=== PATIENT | male | born 1980 | race Caucasian/White ===

== ENCOUNTER 2021-10-22 11:38 | Inpatient (IN) ==
[2021-10-22] MEDS ORDERED: ONDANSETRON INJ 2 MG/ML 2 ML VIAL IV STA (15:49)
[2021-10-22] MEDS ORDERED: MoRPHine SULFATE 4 MG/ML 1 ML CARP\\VIAL IV STA ×2 (15:49→19:07)
--- NOTE | 2021-10-22 15:51 | Emergency Department Note ---
Impression & Plan Acute pancreatitis ADMIT ED Provider Note HPI: The patient is a 41-year-old male who presents the emergency department the chief complaint of abdominal pain that has been worsening over the past 24 hours. Patient states he developed some pain in his mid abdomen yesterday evening and was having difficulty sleeping throughout the night. He states he has had multiple episodes of vomiting. He states his pain is in the mid/upper abdomen and radiates somewhat towards his back. He denies any chest pain or shortness of breath, denies any recent fevers or coughing. On arrival to the emergency department the patient is hemodynamically stable, he is saturating well on room air on my initial assessment and is otherwise in no acute distress. He denies any diarrhea. ROS: -GI: Abdominal pain, nausea and vomiting *10 point review systems was conducted and is otherwise negative unless stated above *Outpatient medications and allergy history reviewed PE: General: Alert, NAD HEENT: Normocephalic, atraumatic, trachea midline Eyes: Extraocular eye movement is intact, no scleral erythema Pulmonary: Clear to auscultation bilaterally, no wheezing Cardio: Regular rate and rhythm GI: Abdomen is soft, moderate tenderness to palpation in the upper abdomen bilat erally without guarding or rigidity : No suprapubic tenderness MSK: No evidence of trauma or malformation of the extremities, no edema Skin: No evidence of rash Neuro: Alert, no focal deficits Psychiatric: Cooperative conveyor monitor: - An order was placed for continuous cardiac monitoring - Patient was noted to be in sinus rhythm with rate of 95 EKG: Rate: 98 Rhythm: Normal sinus rhythm Intervals: Within normal limits ST changes: No ST elevation Time: 1608 Medical Decision Making: Patient presented to the emergency department with abdominal pain that been ongoing for about the past day. CT imaging here in the ED shows evidence of acute pancreatitis. No evidence of any fluid collection. Lab work shows evidence of a lipase elevated at 13,500. Patient was given 2 L of IV fluid here in the ED, was also given antiemetics and two doses of IV morphine for pain. On my reassessment he states his pain is improved but still present. Case was discussed with the on-call hospitalist for [facility], Dr. Ramirez, patient was admitted to the hospitalist service in stable condition for further management. * Diagnosis: Acute pancreatitis * Disposition: Admission Alen Bustamante DO Emergency Medicine Past Med/Surg History Social History Smoking Status: Former smoker Tobacco Type: Cigarettes Preferred Language: [place] Feels Safe at Home: Yes Allergies Allergies Allergy/AdvReac Type Severity Reaction Status Date / Time No Known Allergies Allergy Unverified 10/22/21 16:08 Home Meds Home Medications Medication Instructions Recorded Confirmed [place] 2 tab PO DAILY 10/22/21 10/22/21 [place] Belly Tonic 1 dose PO DAILY 10/22/21 10/22/21 acetaminophen 500 mg tablet 1,000 mg PO Q6H PRN 10/22/21 10/22/21 (Tylenol Extra Strength) metformin 500 mg tablet 0 mg PO BID 10/22/21 10/22/21 Results & Data (ED) Vital Signs Vital Signs - 24 hr 10/22/21 11:55 10/22/21 16:14 10/22/21 16:15 Temperature 37 C Temperature Source Oral Pulse Rate 84 Pulse Rate [Left] 93 H Pulse Rhythm [Left] Regular Pulse Strength [Left] Normal Respiratory Rate 18 18 Respiratory Effort / Characteristics Non-Labored Non-Labored Respiratory Depth Normal Normal Respiratory Pattern Regular Regular Blood Pressure 155/86 H Blood Pressure [Left Arm] 146/80 H Blood Pressure Mean 109 Blood Pressure Mean [Left Arm] 102 Blood Pressure Position [Left Arm] Lying Pulse Oximetry 96 98 98 Oxygen Delivery Method Room Air Room Air Room Air Sepsis Recent Fever Within 48 Hours No Sepsis New/Unexplained Change in Mental Status No Sepsis Action Taken by Nursing No Action Required 10/22/21 16:16 10/22/21 16:20 10/22/21 16:30 Temperature Temperature Source Pulse Rate 97 H 94 H 99 H Pulse Rate [Left] Pulse Rhythm [Left] Pulse Strength [Left] Respiratory Rate 22 20 24 Respiratory Effort / Characteristics Respiratory Depth Respiratory Pattern Blood Pressure 147/77 H Blood Pressure [Left Arm] Blood Pressure Mean 100 Blood Pressure Mean [Left Arm] Blood Pressure Position [Left Arm] Pulse Oximetry 93 94 94 Oxygen Delivery Method Sepsis Recent Fever Within 48 Hours Sepsis New/Unexplained Change in Mental Status Sepsis Action Taken by Nursing 10/22/21 16:40 10/22/21 16:50 10/22/21 17:00 Temperature Temperature Source Pulse Rate 99 H 103 H 103 H Pulse Rate [Left] Pulse Rhythm [Left] Pulse Strength [Left] Respiratory Rate 23 19 24 Respiratory Effort / Characteristics Respiratory Depth Respiratory Pattern Blood Pressure 155/81 H Blood Pressure [Left Arm] Blood Pressure Mean 105 Blood Pressure Mean [Left Arm] Blood Pressure Position [Left Arm] Pulse Oximetry 94 93 93 Oxygen Delivery Method Sepsis Recent Fever Within 48 Hours Sepsis New/Unexplained Change in Mental Status Sepsis Action Taken by Nursing 10/22/21 17:10 10/22/21 17:20 10/22/21 17:30 Temperature Temperature Source Pulse Rate 104 H 104 H 113 H Pulse Rate [Left] Pulse Rhythm [Left] Pulse Strength [Left] Respiratory Rate 26 H 24 25 H Respiratory Effort / Characteristics Respiratory Depth Respiratory Pattern Blood Pressure Blood Pressure [Left Arm] Blood Pressure Mean Blood Pressure Mean [Left Arm] Blood Pressure Position [Left Arm] Pulse Oximetry 94 94 94 Oxygen Delivery Method Sepsis Recent Fever Within 48 Hours Sepsis New/Unexplained Change in Mental Status Sepsis Action Taken by Nursing 10/22/21 17:40 10/22/21 17:50 Temperature Temperature Source Pulse Rate 108 H 108 H Pulse Rate [Left] Pulse Rhythm [Left] Pulse Strength [Left] Respiratory Rate 24 25 H Respiratory Effort / Characteristics Respiratory Depth Respiratory Pattern Blood Pressure Blood Pressure [Left Arm] Blood Pressure Mean Blood Pressure Mean [Left Arm] Blood Pressure Position [Left Arm] Pulse Oximetry 94 94 Oxygen Delivery Method Sepsis Recent Fever Within 48 Hours Sepsis New/Unexplained Change in Mental Status Sepsis Action Taken by Nursing Laboratory Data Result diagrams: 10/22/21 14:15 10/22/21 16:22 Lab Results 10/22/21 10/22/21 10/22/21 Range/Units 14:15 14:15 16:22 WBC 6.96 (4.8-10.8) K/uL RBC 5.34 (4.7-6.1) M/uL Hgb 17.3 (14.0-18.0) g/dL Hct 45.7 (42-52) % MCV 85.6 (80-100) fL MCH 32.4 (25-34) pg MCHC 37.9 H (32-36) g/dL Plt Count 231 (130-400) K/uL Immature Gran % (Auto) 0.0 % Neut % (Auto) 88.3 % Lymph % (Auto) 6.9 % [place] % (Auto) 4.7 % Eos % (Auto) 0.1 % Baso % (Auto) 0.0 % Neut # (Auto) 6.14 (1.4-6.5) K/uL Lymph # (Auto) 0.48 L (1.2-3.4) K/uL [place] # (Auto) 0.33 (0.11-0.59) K/uL Eos # (Auto) 0.01 (0-0.5) K/uL Baso # (Auto) 0.00 (0-0.2) K/uL Immature Gran # (Auto) 0.00 (0.00-0.02) K/uL Sodium Cancelled 134 L Potassium Cancelled 4.4 Chloride Cancelled 105 Carbon Dioxide Cancelled 18 L Anion Gap Cancelled 11.0 BUN Cancelled 11 Creatinine Cancelled 0.71 Est Cr Clr Drug Dosing Cancelled 212.7 Est GFR ( Amer) Cancelled 133.2 Est GFR (Non-Af Amer) Cancelled 114.9 BUN/Creatinine Ratio Cancelled 15.9 Glucose Cancelled 328 H* Calcium Cancelled 9.1 Total Bilirubin Cancelled 0.8 AST Cancelled 25 ALT Cancelled 28 Alkaline Phosphatase Cancelled 88 Troponin I < 0.015 (0-0.045) ng/ml Total Protein Cancelled 8.6 H Albumin Cancelled 3.9 Globulin Cancelled 4.7 H Albumin/Globulin Ratio Cancelled 0.8 L Lipase Cancelled 80429 H Beta-Hydroxybutyric Acd (0.2-2.81) mg/dl Urine Color Urine Appearance (Clear) Urine pH (4.5-7.5) Ur Specific [place] (1.000-1.030) Urine Protein (Negative) Urine Glucose (UA) (Negative) Urine Ketones (Negative) Urine Blood (Negative) Urine Nitrite (Negative) Urine Bilirubin (Negative) Urine Urobilinogen (Negative) Ur Leukocyte Esterase (Negative) Urine WBC (Auto) (0-5) /hpf Urine RBC (Auto) (0-4) /hpf U Hyaline Cast (Auto) (0-5) /lpf U Epithel Cells (Auto) (0-5) /lpf Urine Bacteria (Auto) (Negative) 10/22/21 Range/Units Unknown WBC (4.8-10.8) K/uL RBC (4.7-6.1) M/uL Hgb (14.0-18.0) g/dL Hct (42-52) % MCV (80-100) fL MCH (25-34) pg MCHC (32-36) g/dL Plt Count (130-400) K/uL Immature Gran % (Auto) % Neut % (Auto) % Lymph % (Auto) % [place] % (Auto) % Eos % (Auto) % Baso % (Auto) % Neut # (Auto) (1.4-6.5) K/uL Lymph # (Auto) (1.2-3.4) K/uL [place] # (Auto) (0.11-0.59) K/uL Eos # (Auto) (0-0.5) K/uL Baso # (Auto) (0-0.2) K/uL Immature Gran # (Auto) (0.00-0.02) K/uL Sodium Potassium Chloride Carbon Dioxide Anion Gap BUN Creatinine Est Cr Clr Drug Dosing Est GFR ( Amer) Est GFR (Non-Af Amer) BUN/Creatinine Ratio Glucose Calcium Total Bilirubin AST ALT Alkaline Phosphatase Troponin I (0-0.045) ng/ml Total Protein Albumin Globulin Albumin/Globulin Ratio Lipase Beta-Hydroxybutyric Acd (0.2-2.81) mg/dl Urine Color Yellow Urine Appearance Clear (Clear) Urine pH 5.0 (4.5-7.5) Ur Specific [place] > 1.045 H (1.000-1.030) Urine Protein 1+ H (Negative) Urine Glucose (UA) 3+ H (Negative) Urine Ketones 4+ H (Negative) Urine Blood Negative (Negative) Urine Nitrite Negative (Negative) Urine Bilirubin Negative (Negative) Urine Urobilinogen Negative (Negative) Ur Leukocyte Esterase Negative (Negative) Urine WBC (Auto) 0 (0-5) /hpf Urine RBC (Auto) 0-4 (0-4) /hpf U Hyaline Cast (Auto) 0 (0-5) /lpf U Epithel Cells (Auto) 0-5 (0-5) /lpf Urine Bacteria (Auto) Negative (Negative) Administered Medications Sodium Chloride (Nss) 500 mls @ 80 mls/hr IV .Q6H15M CHAO Stop: 11/21/21 15:59 Last Admin: 10/22/21 16:12 Dose: 80 mls/hr Documented by: [id number] Discontinued Medications Sodium Chloride (Nss 1000ml) 1,000 mls @ 999 mls/hr IV .Q1H1M ONE Stop: 10/22/21 18:23 Last Infusion: 10/22/21 18:36 Dose: 0 mls/hr Documented by: [id number] Admin: 10/22/21 17:27 Dose: 999 mls/hr Documented by: [id number] Ioversol (Optiray 320 125ml) 120 ml IV ONCE ONE Stop: 10/22/21 18:45 Last Admin: 10/22/21 18:45 Dose: 120 ml Documented by: [id number] Morphine Sulfate (Morphine Sulfate 4 Mg/Ml 1 Ml Carp\Vial) 4 mg IV NOW STA Stop: 10/22/21 15:50 Last Admin: 10/22/21 16:11 Dose: 4 mg Documented by: [id number] Ondansetron HCl (Ondansetron Inj 2 Mg/Ml 2 Ml Vial) 4 mg IV NOW STA Stop: 10/22/21 15:50 Last Admin: 10/22/21 16:12 Dose: 4 mg Documented by: [id number] Imaging Data Radiologist's Impression: Abdomen/Pelvis CT 10/22/21 15:49 CT SCAN OF THE ABDOMEN AND PELVIS WITH IV CONTRAST CLINICAL HISTORY: Nausea and vomiting. Mid abdominal pain. COMPARISON STUDY: No priors. TECHNIQUE: Following the IV administration of 120 cc of Optiray 320, CT scan of the abdomen and pelvis is performed from the lung bases to the proximal femora. Images are reviewed in the axial, sagittal, and coronal planes. IV contrast was administered without complication. A dose lowering technique was utilized adhering to the principles of ALARA. CT DOSE: 1943.48 mGy.cm FINDINGS: Lung bases: The heart is normal in size and without pericardial effusion. There is a tiny hiatal hernia. There are trace pleural effusions with dependent atelectasis. Liver: The contrast-enhanced liver is enlarged, measuring 28.8 cm in length. The liver demonstrates diffusely diminished attenuation consistent with severe hepatic steatosis. There is no intrahepatic biliary ductal dilatation. The hepatic veins and portal veins are patent. Gallbladder: Unremarkable. Spleen: The spleen is markedly enlarged measuring 17.2 cm in length. Pancreas: The pancreas is enlarged and edematous. There is extensive peripancreatic infiltration and fluid consistent with acute pancreatitis. The gland enhances throughout. The splenic vein is patent. No organized peripancreatic fluid collection is identified. The duct is normal in caliber. Adrenal glands: There is a 7 mm myelolipoma of the right adrenal gland. The adrenal glands are otherwise normal as imaged. Kidneys: The contrast enhanced kidneys are normal in size and without hydronephrosis. The kidneys enhance symmetrically. Abdominal vasculature: The abdominal aorta is normal in course and caliber. Bowel: There is no bowel obstruction. The appendix is well-visualized and normal. Peritoneum: There is no intraperitoneal free air or abdominal ascites. Lymphadenopathy: None. Pelvic viscera: The bladder, prostate, and seminal vesicles are normal as visualized. Skeletal structures: No lytic or blastic lesions are seen. IMPRESSION: 1. Findings are consistent with severe acute pancreatitis. 2. The gland enhances throughout and no organized peripancreatic fluid collection is identified. 3. Marked hepatomegaly and steatosis. 4. Splenomegaly. 5. Trace pleural effusions with dependent atelectasis. 6. Additional findings as above. ACT 112: Negative or not required by law. Electronically signed by: Arcadio Rudolph M.D. 10/22/2021 6:56 PM Discharge Plan Visit Data Chief Complaint: Abdominal Pain Stated Complaint: ABD AND BACK PAIN ED Provider: Alen Bustamante Discharge Problem: Acute pancreatitis Forms Stand Alone Forms: [facility] [employer] Prescriptions Prescriptions: No Action metformin 500 mg Tablet 0 mg PO BID RF: 0 acetaminophen [Tylenol Extra Strength] 500 mg Tablet 1,000 mg PO Q6H PRN (Reason: Pain) RF: 0 [place] 2 tab PO DAILY RF: 0 [place] Belly Tonic 1 dose PO DAILY RF: 0 Referrals Referrals: PCP,NO [Primary Care Provider] - Discharge Problem: Acute pancreatitis Qualifiers: Pancreatitis type: unspecified pancreatitis type Acute pancreatitis complication: no infection or necrosis Qualified Code(s): K85.90 - Acute pancreatitis without necrosis or infection, unspecified
[2021-10-22 16:12] LABS: Eosinophils # (auto) 0.01 K/uL (0-0.5); Eosinophils % (auto) 0.1 %; Hematocrit (blood only) 45.7 % (42-52); Hemoglobin 17.3 g/dL (14.0-18.0); Lymphocytes # (auto) 0.48 K/uL (1.2-3.4); Lymphocytes % (auto) 6.9 %; Mean Corpuscular Hemoglobin 32.4 pg (25-34); Mean Corpuscular Hgb Conc 37.9 g/dL (32-36); Mean Corpuscular Volume 85.6 fL (80-100); Monocytes # (auto) 0.33 K/uL (0.11-0.59); Monocytes % (auto) 4.7 %; Neutrophils # (auto) 6.14 K/uL (1.4-6.5); Neutrophils % (auto) 88.3 %; Platelet Count 231 K/uL (130-400); Red Blood Count 5.34 M/uL (4.7-6.1); White Blood Count 6.96 K/uL (4.8-10.8)
[2021-10-22] MEDS: SODIUM CHLORIDE 0.9% 500 ML IV SCH (16:12)
[2021-10-22 16:35] LABS: Appearance Urine Clear (Clear); Bacteria Urine Automated Negative (Negative); Bilirubin Urine Negative (Negative); Blood Urine Negative (Negative); Cast Urine Automated 0 /lpf (0-5); Color Urine Yellow; Epithelial Cell Urine Auto 0-5 /lpf (0-5); Glucose Urine UA 3+ (Negative); Ketones Urine 4+ (Negative); Leukocyte Esterase Urine Negative (Negative); Nitrite Urine Negative (Negative); Protein Urine 1+ (Negative); RBC Urine Automated 0-4 /hpf (0-4); Specific Gravity Urine > 1.045 (1.000-1.030); Urobilinogen Urine Negative (Negative); WBC Urine Automated 0 /hpf (0-5)
[2021-10-22 17:19] LABS: Aspartate Aminotransferase 25 U/L (15-37); Potassium 4.4 mmol/L (3.5-5.1)
[2021-10-22 17:21] LABS: Alanine Aminotransferase 28 U/L (12-78); Albumin Globulin Ratio 0.8 (0.9-2); Albumin Level 3.9 gm/dl (3.4-5.0); Alkaline Phosphatase 88 U/L (45-117); BUN Creatinine Ratio 15.9 (10-20); Bilirubin,Total 0.8 mg/dl (0.2-1); Blood Urea Nitrogen 11 mg/dl (7-18); Calcium 9.1 mg/dl (8.5-10.1); Carbon Dioxide 18 mmol/L (21-32); Chloride 105 mmol/L (98-107); Creatinine Clr Calc Pharmacy 212.7 ml/min; Est GFR (African American) 133.2 ml/min; Est GFR (Non-African American) 114.9 ml/min; Globulin 4.7 gm/dl (2.5-4.0); Glucose 328 mg/dl (70-99); Lipase 13513 U/L (73-393); Sodium 134 mmol/L (136-145); Total Protein 8.6 gm/dl (6.4-8.2); Troponin I < 0.015 ng/ml (0-0.045)
[2021-10-22] MEDS ORDERED: SODIUM CHLORIDE 0.9% 1000ML 1,000 ML IV ONE ×2 (17:23→19:07)
--- NOTE | 2021-10-22 17:59 | Electrocardiogram Report ---
Test Reason : Blood Pressure : / mmHG Vent. Rate : 098 BPM Atrial Rate : 098 BPM P-R Int : 138 ms QRS Dur : 092 ms QT Int : 350 ms P-R-T Axes : 041 072 057 degrees QTc Int : 446 ms Normal sinus rhythm Normal ECG No previous ECGs available Confirmed by Glenn Bingham ([id number]) on 10/22/2021 5:58:44 PM Referred By: Confirmed By:Colin Bingham
[2021-10-22] MEDS ORDERED: OPTIRAY 320 125ml IV ONE (18:44)
--- NOTE | 2021-10-22 18:58 | CT Scan Report ---
CT SCAN OF THE ABDOMEN AND PELVIS WITH IV CONTRAST CLINICAL HISTORY: Nausea and vomiting. Mid abdominal pain. COMPARISON STUDY: No priors. TECHNIQUE: Following the IV administration of 120 cc of Optiray 320, CT scan of the abdomen and pelv is is performed from the lung bases to the proximal femora. Images are reviewed in the axial, sagitta l, and coronal planes. IV contrast was administered without complication. A dose lowering technique w as utilized adhering to the principles of ALARA. CT DOSE: 1943.48 mGy.cm FINDINGS: Lung bases: The heart is normal in size and without pericardial effusion. There is a tiny hiatal daniel ia. There are trace pleural effusions with dependent atelectasis. Liver: The contrast-enhanced liver is enlarged, measuring 28.8 cm in length. The liver demonstrates d iffusely diminished attenuation consistent with severe hepatic steatosis. There is no intrahepatic bi liary ductal dilatation. The hepatic veins and portal veins are patent. Gallbladder: Unremarkable. Spleen: The spleen is markedly enlarged measuring 17.2 cm in length. Pancreas: The pancreas is enlarged and edematous. There is extensive peripancreatic infiltration and fluid consistent with acute pancreatitis. The gland enhances throughout. The splenic vein is patent. No organized peripancreatic fluid collection is identified. The duct is normal in caliber. Adrenal glands: There is a 7 mm myelolipoma of the right adrenal gland. The adrenal glands are otherw ise normal as imaged. Kidneys: The contrast enhanced kidneys are normal in size and without hydronephrosis. The kidneys enh ance symmetrically. Abdominal vasculature: The abdominal aorta is normal in course and caliber. Bowel: There is no bowel obstruction. The appendix is well-visualized and normal. Peritoneum: There is no intraperitoneal free air or abdominal ascites. Lymphadenopathy: None. Pelvic viscera: The bladder, prostate, and seminal vesicles are normal as visualized. Skeletal structures: No lytic or blastic lesions are seen. IMPRESSION: 1. Findings are consistent with severe acute pancreatitis. 2. The gland enhances throughout and no organized peripancreatic fluid collection is identified. 3. Marked hepatomegaly and steatosis. 4. Splenomegaly. 5. Trace pleural effusions with dependent atelectasis. 6. Additional findings as above. ACT 112: Negative or not required by law. Electronically signed by: Arcadio Rudolph M.D. 10/22/2021 6:56 PM
--- NOTE | 2021-10-22 21:03 | Ultrasound Report ---
ULTRASOUND RIGHT UPPER QUADRANT ABDOMEN CLINICAL HISTORY: Right upper quadrant abdominal pain. Pancreatitis. COMPARISON STUDY: Abdominal CT dated 10/22/2021. TECHNIQUE: Real-time, grayscale, and color flow sonography of the right upper quadrant of the abdomen was performed. Images are reviewed in the transverse and longitudinal planes. FINDINGS: Liver: The liver is markedly enlarged and demonstrates heterogeneously increased echotexture consiste nt with hepatic steatosis. There is no intrahepatic biliary ductal dilatation. The main portal vein i s patent. Gallbladder: Biliary sludge is noted. No shadowing gallstones are identified. There is no gallbladder wall thickening or pericholecystic fluid. A sonographic Juarez's sign is reportedly absent. The comm on bile duct measures up to 0.7 cm in diameter. Pancreas: Not well visualized due to overlying bowel gas. Right kidney: Survey images of the right kidney demonstrate normal size and echotexture. There is no hydronephrosis. Ascites: None. IMPRESSION: 1. There is biliary sludge with no shadowing gallstones identified. 2. Marked hepatomegaly and hepatic steatosis. 3. The pancreas was not visualized due to overlying bowel gas. ACT 112: Negative or not required by law. Electronically signed by: Arcadio Rudolph M.D. 10/22/2021 9:02 PM
[2021-10-22] MEDS ORDERED: NovoLIN-R INSULIN PER UNIT CHARGE IV STA (21:14)
[2021-10-22] MEDS ORDERED: INSULIN GLARGINE SOLOSTAR 100 UNITS/ML 3 ML PEN SC SCH (21:17)
--- NOTE | 2021-10-22 23:03 | History and Physical Report ---
DATE OF ADMISSION: 10/22/2021. CHIEF COMPLAINT: Abdominal pain. HISTORY OF PRESENT ILLNESS: A 41-year-old male with past medical history significant for diabetes, morbid obesity presents with severe abdominal pain. 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 He says since last night he is having severe abdominal pain all over his belly that radiates to back, severe pain with associated nausea and vomiting. He then came here and found to have acute pancreatitis. The patient denies any alcohol use. He states he drinks once in a while. Denies any diarrhea or constipation. Normal bladder movements. No chest pain. He states he is not able to take deep breath and makes him feel short of breath. Denies any headache. No blurred visions, no runny nose, some sore throat from vomiting. Otherwise, ambulates okay. Hemodynamically stable. ALLERGIES: No known drug allergies. PAST MEDICAL HISTORY: As mentioned above. PAST SURGICAL HISTORY: Right foot surgery after accident. MEDICATIONS: The patient is on metformin 500 mg tablets, Tylenol p.r.n. FAMILY HISTORY: Father had diabetes and cholecystectomy. SOCIAL HISTORY: He smokes 1-2 packs a week, he did not smoke in the last 2 weeks, he smoked on and off for the last 20 years. Alcohol, occasional. No drug use. REVIEW OF SYSTEMS: As per HPI. Rest of review of systems is negative. PHYSICAL EXAMINATION: GENERAL: The patient is morbidly obese, seems to be in abdominal pain. VITAL SIGNS: Temperature 37, pulse 98, respiratory rate 38, blood pressure 176/112, oxygen 94% on room air. HEENT: Pupils equal, round and reactive to light. Oral mucosa dry. NECK: No JVD or neck masses. CARDIOVASCULAR: S1 and S2 heard, regular rate and rhythm. No murmur, no gallop. RESPIRATORY: Normal AP diameter. No accessory muscle use. No wheezing, no crackles. ABDOMEN: Soft. Bowel sounds present. Diffuse tenderness, guarding present. No distention. CENTRAL NERVOUS SYSTEM: Cranial nerves II through XII are grossly intact, nonfocal. EXTREMITIES: No edema, no erythema. LABORATORY DATA: WBC 6.9, hemoglobin is 15.3, hematocrit 45.7, platelets 231. Sodium 134, potassium 4.4, chloride 105, bicarbonate 18, BUN 11, creatinine 0.7, serum glucose 328, calcium 9.1, total bilirubin 0.8, AST 24, ALT 28, alkaline phosphatase 88. Troponin I less than 0.015. Lipase 25206. Urinalysis +4 ketones, +3 glucose. SARS-CoV-2 negative. Gallbladder ultrasound biliary sludge with no gallstones identified, marked hepatomegaly with hepatic steatosis. Pancreas is not visualized. IMAGING DATA: CT of the abdomen and pelvis with IV contrast shows consistent with severe acute pancreatitis, marked hepatomegaly and steatosis, splenomegaly. EKG: Normal sinus rhythm at a rate 98, no previous EKGs available. ASSESSMENT AND PLAN: This is a 41-year-old male who presents with severe abdominal pain and found to have acute pancreatitis. 1. Acute severe pancreatitis, etiology unclear. The patient is not alcoholic. No gallstones on the ultrasound. We will check fasting lipid profiles in the a.m. We will treat this with aggressive fluids, n.p.o., IV antiemetics, IV pain medicines p.r.n. Consult GI in the a.m. for further recommendations. 2. Diabetes. Sugars are running high. The patient is on metformin. The patient says he is diabetic since one year ago. Bicarbonate was slightly on the lower side at 18, we will give IV insulin Lantus insulin sliding scale. Recheck the labs in the midnight and the bicarbonate drops further we will do DKA protocol. Getting aggressive fluids as above, we will follow the HbA1c levels in the a.m. 3. Morbid obesity. Needs counseling. 4. Deep venous thrombosis prophylaxis: Lovenox. DISPOSITION: Closely monitor in the medical floor. PT/OT prior to discharge. Social service to help with discharge planning. Job ID: [id number] [facility] SYSTEM[facility]raj
[2021-10-23] MEDS ORDERED: ONDANSETRON INJ 2 MG/ML 2 ML VIAL IV PRN (01:29)
[2021-10-23] MEDS: ENOXAPARIN INJ 40 MG/0.4 ML SYR SQ SCH ×3 (02:42→21:48)
[2021-10-23] MEDS: HYDROmorphone INJ 0.5 MG/0.5 ML SYR IV PRN ×2 (02:43→13:39)
[2021-10-23] MEDS: LACTATED RINGER'S 1,000 ML IV SCH ×5 (02:43→23:47)
[2021-10-23] MEDS: SODIUM CHLORIDE 0.9% 500 ML IV SCH (03:13)
[2021-10-23 04:06] LABS: BUN Creatinine Ratio 13.3 (10-20); Calcium 7.8 mg/dl (8.5-10.1); Creatinine Clr Calc Pharmacy 145.2 ml/min; Est GFR (African American) 101.4 ml/min; Est GFR (Non-African American) 87.5 ml/min
[2021-10-23 04:21] LABS: Beta-Hydroxybutyrate 3.68 mg/dl (0.2-2.81); Potassium 5.2 mmol/L (3.5-5.1)
[2021-10-23] MEDS ORDERED: INSULIN HUMAN REGULAR PER UNIT 7 UNITS in SYRINGE 0 ML IV STA (04:26)
[2021-10-23] MEDS ORDERED: NovoLIN-R INSULIN PER UNIT CHARGE IV STA (04:28)
[2021-10-23] MEDS ORDERED: INSULIN ASPART 100 UNITS/ML 3 ML PEN SC SCH ×2 (04:45→07:30)
[2021-10-23] MEDS ORDERED: INSULIN HUMAN REGULAR PER UNIT 7 UNITS in SYRINGE 6.93 ML IV ONE (04:45)
[2021-10-23 05:27] LABS: Eosinophils # (auto) 0.01 K/uL (0-0.5); Eosinophils % (auto) 0.3 %; Hematocrit (blood only) 46.5 % (42-52); Hemoglobin 16.4 g/dL (14.0-18.0); Immature Granulocytes # (auto) 0.01 K/uL (0.00-0.02); Immature Granulocytes % (auto) 0.3 %; Lymphocytes # (auto) 0.49 K/uL (1.2-3.4); Lymphocytes % (auto) 15.1 %; Mean Corpuscular Hemoglobin 30.2 pg (25-34); Mean Corpuscular Hgb Conc 35.3 g/dL (32-36); Mean Corpuscular Volume 85.6 fL (80-100); Mean Platelet Volume 10.7 fL (7.4-10.4); Monocytes # (auto) 0.11 K/uL (0.11-0.59); Monocytes % (auto) 3.4 %; Neutrophils # (auto) 2.63 K/uL (1.4-6.5); Neutrophils % (auto) 80.9 %; Platelet Count 173 K/uL (130-400); RDW Coefficient of Variation 14.1 % (11.5-14.5); Red Blood Count 5.43 M/uL (4.7-6.1); White Blood Count 3.25 K/uL (4.8-10.8)
[2021-10-23 05:58] LABS: BUN Creatinine Ratio 12.5 (10-20); Calcium 7.5 mg/dl (8.5-10.1); Creatinine Clr Calc Pharmacy 145.2 ml/min; Est GFR (African American) 101.4 ml/min; Est GFR (Non-African American) 87.5 ml/min; Magnesium 1.9 mg/dl (1.8-2.4); Potassium 4.7 mmol/L (3.5-5.1)
[2021-10-23 06:14] LABS: Beta-Hydroxybutyrate 2.35 mg/dl (0.2-2.81)
[2021-10-23 07:03] LABS: Estimated Average Glucose 194 mg/dl; Hemoglobin A1C 8.4 % (4.5-5.6)
[2021-10-23] MEDS ORDERED: PHARMACY GLYCEMIC MGMT CONSULT PRN ×2 (07:09→08:17)
[2021-10-23] MEDS ORDERED: STAT IV Infusion **Titration per Protocol STA (07:17)
[2021-10-23] MEDS ORDERED: INSULIN PROTOCOL GOAL RANGE ONE (07:17)
[2021-10-23] MEDS ORDERED: INSULIN REGULAR 250 UNITS in SODIUM CHLORIDE 0.9% 247.5 ML IV SCH (07:30)
[2021-10-23] MEDS ORDERED: NovoLIN-R BOLUS FROM BAG IV ONE (07:30)
[2021-10-23] MEDS ORDERED: FENOFIBRATE NANOCRYSTALLIZED 145 MG TABLET PO SCH (09:00)
[2021-10-23] MEDS ORDERED: INSULIN GLARGINE SOLOSTAR 100 UNITS/ML 3 ML PEN SC SCH (09:00)
[2021-10-23] MEDS: INSULIN ASPART 100 UNITS/ML 3 ML PEN SC SCH ×5 (09:02→21:06)
--- NOTE | 2021-10-23 09:10 | Gastrointestinal Consultation ---
Date of Consultation October 23, 2021 Assessment & Plan (1) Acute pancreatitis: 41 year old male with diabetes admitted w/ abdominal pain, nausea/vomiting onset Friday, lipase 13,513 w/ normal LFTS. Imaging consistent with acute pancreatitis and biliary sludge w/o biliary dilation. - NPO for bowel rest - OK for some ice chips - Continue LR 200 mL/hr - Antiemetics PRN - Analgesia PRN - Arrange MRCP - OP EUS in 4 weeks - Elevated triglycerides - severe inflammatory response to acute pancreatitis can cause increased triglycerides - rule out other cause of pancreatitis w/ MRCP - can continue fenofibrate at this time - If concern for hypertriglyceridemia induced pancreatitis, goal of triglyceride levels below 500 mg/dL - Plasmapheresis does not improve outcomes of uncomplicated HTGpanc, but if high risk features are evidence can consider cardiology evaluation in regards to plasmapheresis Thank you for allowing us to participate in the care of this patient. Please call with any acute changes, questions or concerns. Please see addendum below with additional recommendation from my supervising physician. Supervising Physician Co-Signing Physician Notes Late entry: Patient was zoran and examine don 10/23 with HEATHER Sinclair whose note reflects our findings and plan. History of Present Illness Reason for Consultation: pancreatitis Requesting Physician: Xander Attending Physician: Yaakov Terrell MD History of Present Illness 41 year old male with diabetes admitted w/ abdominal pain. Symptoms started abruptly on Friday. Upper abd pain w/ nausea/vomiting. Pain worsened, radiated to his back. Sought ED care. Lipase elevated, imaging consistent with acute severe pancreatitis. LFTS normal Denies new medications Denies heavy ETOH use, no ETOH use at all since summer 2020 Denies marijuana, other street drugs Glucose 377 Triglycerides 843 Lipase 13,513 --> 4,212 TB 0.8 AST 25 ALT 28 ALKP 88 ABD US 2020: There is biliary sludge with no shadowing gallstones identified.. Marked hepatomegaly and hepatic steatosis. The pancreas was not visualized due to overlying bowel CTAP 2020: Findings are consistent with severe acute pancreatitis. The gland enhances throughout and no organized peripancreatic fluid collection is identified.. Marked hepatomegaly and steatosis.. Splenomegaly.. Trace pleural effusions with dependent atelectasis. Allergies Allergy/AdvReac Type Severity Reaction Status Date / Time No Known Allergies Allergy Unverified 10/22/21 16:08 Home Medications Medication Instructions Recorded Confirmed Type [place] 2 tab PO DAILY 10/22/21 10/22/21 History [place] Flat Belly Tonic 1 dose PO DAILY 10/22/21 10/22/21 History acetaminophen 500 mg tablet 1,000 mg PO Q6H PRN 10/22/21 10/22/21 History (Tylenol Extra Strength) metformin 500 mg tablet 0 mg PO BID 10/22/21 10/22/21 History Patient History Social History Smoking Status: Former smoker Tobacco Type: Cigarettes Preferred Language: Liberian Communication Ability: Effective Beliefs That Will Affect Care: None Current Living Situation: Spouse Other Information That Helps Us Care for You: No Feels Safe at Home: Yes Assistive Devices: None Review of Systems Review of Systems: All systems reviewed & are unremarkable except as noted in HPI & below Physical Exam Constitutional: WD/WN, vitals as above Neck: trachea midline, no thyromegaly Respiratory: normal respiratory effort, lungs clear to auscultation Cardiovascular: Rate/Rhythm: + tachycardic Gastrointestinal (Abdomen): Inspection/Auscultation: abdomen normal to inspection and normal bowel sounds; abdomen not distended Percussion/Palpation: + abdomen tender and abdomen soft; no guarding and abdomen not rigid Skin: no rashes, warm and dry Results & Data ([facility]) Vital Signs (Past 12 Hours) Vital Signs Pulse Pulse Resp BP BP Pulse Ox 10/23/21 03:00 117 H 20 140/76 95 10/23/21 01:50 130 H 32 H 143/88 H 98 10/23/21 01:40 124 H 29 H 94 10/23/21 01:35 127 H 20 143/86 H 98 10/23/21 01:30 126 H 32 H 95 10/23/21 01:20 125 H 32 H 95 10/23/21 01:10 128 H 32 H 95 10/23/21 01:00 127 H 31 H 96 10/23/21 00:50 131 H 21 95 10/23/21 00:40 128 H 33 H 94 10/23/21 00:30 130 H 28 H 95 10/23/21 00:20 136 H 31 H 148/60 H 94 10/23/21 00:19 143 H 40 H 10/22/21 23:30 124 H 25 H 94 10/22/21 23:20 128 H 32 H 94 10/22/21 23:10 130 H 31 H 93 10/22/21 23:00 124 H 31 H 93 10/22/21 22:50 124 H 32 H 92 10/22/21 22:40 126 H 33 H 94 10/22/21 22:30 129 H 30 H 10/22/21 22:20 126 H 32 H 92 10/22/21 22:15 126 H 34 H 146/78 H 94 Laboratory Results 10/23/21 10/23/21 10/23/21 Range/Units 08:36 05:33 05:09 WBC (4.8-10.8) K/uL RBC (4.7-6.1) M/uL Hgb (14.0-18.0) g/dL Hct (42-52) % MCV (80-100) fL MCH (25-34) pg MCHC (32-36) g/dL RDW Std Deviation (36.4-46.3) fL RDW Coeff of Che (11.5-14.5) % Plt Count (130-400) K/uL MPV (7.4-10.4) fL Immature Gran % (Auto) % Neut % (Auto) % Lymph % (Auto) % [place] % (Auto) % Eos % (Auto) % Baso % (Auto) % Neut # (Auto) (1.4-6.5) K/uL Lymph # (Auto) (1.2-3.4) K/uL [place] # (Auto) (0.11-0.59) K/uL Eos # (Auto) (0-0.5) K/uL Baso # (Auto) (0-0.2) K/uL Immature Gran # (Auto) (0.00-0.02) K/uL Sodium Potassium Chloride Carbon Dioxide Anion Gap BUN Creatinine Est Cr Clr Drug Dosing Est GFR ( Amer) Est GFR (Non-Af Amer) BUN/Creatinine Ratio Glucose POC Glucose 334 H* 313 H* (70-99) mg/dl Estimat Average Glucose 194 mg/dl Hemoglobin A1c 8.4 H (4.5-5.6) % Calcium Magnesium (1.8-2.4) mg/dl Total Bilirubin AST ALT Alkaline Phosphatase Troponin I (0-0.045) ng/ml Total Protein Albumin Globulin Albumin/Globulin Ratio Triglycerides (0-150) mg/dl Cholesterol (0-200) mg/dl LDL Cholesterol, Calc mg/dl VLDL Cholesterol, Calc mg/dl HDL Cholesterol mg/dl Cholesterol/HDL Ratio Lipase Beta-Hydroxybutyric Acd (0.2-2.81) mg/dl Urine Color Urine Appearance (Clear) Urine pH (4.5-7.5) Ur Specific [place] (1.000-1.030) Urine Protein (Negative) Urine Glucose (UA) (Negative) Urine Ketones (Negative) Urine Blood (Negative) Urine Nitrite (Negative) Urine Bilirubin (Negative) Urine Urobilinogen (Negative) Ur Leukocyte Esterase (Negative) Urine WBC (Auto) (0-5) /hpf Urine RBC (Auto) (0-4) /hpf U Hyaline Cast (Auto) (0-5) /lpf U Epithel Cells (Auto) (0-5) /lpf Urine Bacteria (Auto) (Negative) SARS-CoV-2, RNA, NAAT (NEGATIVE) 10/23/21 10/23/21 10/23/21 Range/Units 05:09 05:09 03:14 WBC 3.25 L (4.8-10.8) K/uL RBC 5.43 (4.7-6.1) M/uL Hgb 16.4 (14.0-18.0) g/dL Hct 46.5 (42-52) % MCV 85.6 (80-100) fL MCH 30.2 (25-34) pg MCHC 35.3 (32-36) g/dL RDW Std Deviation 44.0 (36.4-46.3) fL RDW Coeff of Che 14.1 (11.5-14.5) % Plt Count 173 (130-400) K/uL MPV 10.7 H (7.4-10.4) fL Immature Gran % (Auto) 0.3 % Neut % (Auto) 80.9 % Lymph % (Auto) 15.1 % [place] % (Auto) 3.4 % Eos % (Auto) 0.3 % Baso % (Auto) 0.0 % Neut # (Auto) 2.63 (1.4-6.5) K/uL Lymph # (Auto) 0.49 L (1.2-3.4) K/uL [place] # (Auto) 0.11 (0.11-0.59) K/uL Eos # (Auto) 0.01 (0-0.5) K/uL Baso # (Auto) 0.00 (0-0.2) K/uL Immature Gran # (Auto) 0.01 (0.00-0.02) K/uL Sodium 133 L 132 L Potassium 4.7 5.2 H D Chloride 103 104 Carbon Dioxide 23 18 L Anion Gap 7.0 10.0 BUN 13 14 Creatinine 1.04 1.04 Est Cr Clr Drug Dosing 145.2 145.2 Est GFR ( Amer) 101.4 101.4 Est GFR (Non-Af Amer) 87.5 87.5 BUN/Creatinine Ratio 12.5 13.3 Glucose 377 H* 395 H* POC Glucose (70-99) mg/dl Estimat Average Glucose mg/dl Hemoglobin A1c (4.5-5.6) % Calcium 7.5 L 7.8 L Magnesium 1.9 (1.8-2.4) mg/dl Total Bilirubin AST ALT Alkaline Phosphatase Troponin I (0-0.045) ng/ml Total Protein Albumin Globulin Albumin/Globulin Ratio Triglycerides 843 H (0-150) mg/dl Cholesterol 224 H (0-200) mg/dl LDL Cholesterol, Calc mg/dl VLDL Cholesterol, Calc mg/dl HDL Cholesterol 30 mg/dl Cholesterol/HDL Ratio 8 Lipase 4212 H Beta-Hydroxybutyric Acd 2.35 3.68 H (0.2-2.81) mg/dl Urine Color Urine Appearance (Clear) Urine pH (4.5-7.5) Ur Specific [place] (1.000-1.030) Urine Protein (Negative) Urine Glucose (UA) (Negative) Urine Ketones (Negative) Urine Blood (Negative) Urine Nitrite (Negative) Urine Bilirubin (Negative) Urine Urobilinogen (Negative) Ur Leukocyte Esterase (Negative) Urine WBC (Auto) (0-5) /hpf Urine RBC (Auto) (0-4) /hpf U Hyaline Cast (Auto) (0-5) /lpf U Epithel Cells (Auto) (0-5) /lpf Urine Bacteria (Auto) (Negative) SARS-CoV-2, RNA, NAAT (NEGATIVE) 10/23/21 10/22/21 10/22/21 Range/Units 01:47 Unknown 23:13 WBC (4.8-10.8) K/uL RBC (4.7-6.1) M/uL Hgb (14.0-18.0) g/dL Hct (42-52) % MCV (80-100) fL MCH (25-34) pg MCHC (32-36) g/dL RDW Std Deviation (36.4-46.3) fL RDW Coeff of Che (11.5-14.5) % Plt Count (130-400) K/uL MPV (7.4-10.4) fL Immature Gran % (Auto) % Neut % (Auto) % Lymph % (Auto) % [place] % (Auto) % Eos % (Auto) % Baso % (Auto) % Neut # (Auto) (1.4-6.5) K/uL Lymph # (Auto) (1.2-3.4) K/uL [place] # (Auto) (0.11-0.59) K/uL Eos # (Auto) (0-0.5) K/uL Baso # (Auto) (0-0.2) K/uL Immature Gran # (Auto) (0.00-0.02) K/uL Sodium Cancelled Potassium Cancelled Chloride Cancelled Carbon Dioxide Cancelled Anion Gap Cancelled BUN Cancelled Creatinine Cancelled Est Cr Clr Drug Dosing Cancelled Est GFR ( Amer) Cancelled Est GFR (Non-Af Amer) Cancelled BUN/Creatinine Ratio Cancelled Glucose Cancelled POC Glucose 277 H (70-99) mg/dl Estimat Average Glucose mg/dl Hemoglobin A1c (4.5-5.6) % Calcium Cancelled Magnesium (1.8-2.4) mg/dl Total Bilirubin AST ALT Alkaline Phosphatase Troponin I (0-0.045) ng/ml Total Protein Albumin Globulin Albumin/Globulin Ratio Triglycerides (0-150) mg/dl Cholesterol (0-200) mg/dl LDL Cholesterol, Calc mg/dl VLDL Cholesterol, Calc mg/dl HDL Cholesterol mg/dl Cholesterol/HDL Ratio Lipase Beta-Hydroxybutyric Acd (0.2-2.81) mg/dl Urine Color Yellow Urine Appearance Clear (Clear) Urine pH 5.0 (4.5-7.5) Ur Specific [place] > 1.045 H (1.000-1.030) Urine Protein 1+ H (Negative) Urine Glucose (UA) 3+ H (Negative) Urine Ketones 4+ H (Negative) Urine Blood Negative (Negative) Urine Nitrite Negative (Negative) Urine Bilirubin Negative (Negative) Urine Urobilinogen Negative (Negative) Ur Leukocyte Esterase Negative (Negative) Urine WBC (Auto) 0 (0-5) /hpf Urine RBC (Auto) 0-4 (0-4) /hpf U Hyaline Cast (Auto) 0 (0-5) /lpf U Epithel Cells (Auto) 0-5 (0-5) /lpf Urine Bacteria (Auto) Negative (Negative) SARS-CoV-2, RNA, NAAT (NEGATIVE) 10/22/21 10/22/21 10/22/21 Range/Units 19:55 16:22 14:15 WBC (4.8-10.8) K/uL RBC (4.7-6.1) M/uL Hgb (14.0-18.0) g/dL Hct (42-52) % MCV (80-100) fL MCH (25-34) pg MCHC (32-36) g/dL RDW Std Deviation (36.4-46.3) fL RDW Coeff of Che (11.5-14.5) % Plt Count (130-400) K/uL MPV (7.4-10.4) fL Immature Gran % (Auto) % Neut % (Auto) % Lymph % (Auto) % [place] % (Auto) % Eos % (Auto) % Baso % (Auto) % Neut # (Auto) (1.4-6.5) K/uL Lymph # (Auto) (1.2-3.4) K/uL [place] # (Auto) (0.11-0.59) K/uL Eos # (Auto) (0-0.5) K/uL Baso # (Auto) (0-0.2) K/uL Immature Gran # (Auto) (0.00-0.02) K/uL Sodium 134 L Cancelled Potassium 4.4 Cancelled Chloride 105 Cancelled Carbon Dioxide 18 L Cancelled Anion Gap 11.0 Cancelled BUN 11 Cancelled Creatinine 0.71 Cancelled Est Cr Clr Drug Dosing 212.7 Cancelled Est GFR ( Amer) 133.2 Cancelled Est GFR (Non-Af Amer) 114.9 Cancelled BUN/Creatinine Ratio 15.9 Cancelled Glucose 328 H* Cancelled POC Glucose (70-99) mg/dl Estimat Average Glucose mg/dl Hemoglobin A1c (4.5-5.6) % Calcium 9.1 Cancelled Magnesium (1.8-2.4) mg/dl Total Bilirubin 0.8 Cancelled AST 25 Cancelled ALT 28 Cancelled Alkaline Phosphatase 88 Cancelled Troponin I < 0.015 (0-0.045) ng/ml Total Protein 8.6 H Cancelled Albumin 3.9 Cancelled Globulin 4.7 H Cancelled Albumin/Globulin Ratio 0.8 L Cancelled Triglycerides (0-150) mg/dl Cholesterol (0-200) mg/dl LDL Cholesterol, Calc mg/dl VLDL Cholesterol, Calc mg/dl HDL Cholesterol mg/dl Cholesterol/HDL Ratio Lipase 57844 H Cancelled Beta-Hydroxybutyric Acd (0.2-2.81) mg/dl Urine Color Urine Appearance (Clear) Urine pH (4.5-7.5) Ur Specific [place] (1.000-1.030) Urine Protein (Negative) Urine Glucose (UA) (Negative) Urine Ketones (Negative) Urine Blood (Negative) Urine Nitrite (Negative) Urine Bilirubin (Negative) Urine Urobilinogen (Negative) Ur Leukocyte Esterase (Negative) Urine WBC (Auto) (0-5) /hpf Urine RBC (Auto) (0-4) /hpf U Hyaline Cast (Auto) (0-5) /lpf U Epithel Cells (Auto) (0-5) /lpf Urine Bacteria (Auto) (Negative) SARS-CoV-2, RNA, NAAT NEGATIVE (NEGATIVE) 10/22/21 Range/Units 14:15 WBC 6.96 (4.8-10.8) K/uL RBC 5.34 (4.7-6.1) M/uL Hgb 17.3 (14.0-18.0) g/dL Hct 45.7 (42-52) % MCV 85.6 (80-100) fL MCH 32.4 (25-34) pg MCHC 37.9 H (32-36) g/dL RDW Std Deviation (36.4-46.3) fL RDW Coeff of Che (11.5-14.5) % Plt Count 231 (130-400) K/uL MPV (7.4-10.4) fL Immature Gran % (Auto) 0.0 % Neut % (Auto) 88.3 % Lymph % (Auto) 6.9 % [place] % (Auto) 4.7 % Eos % (Auto) 0.1 % Baso % (Auto) 0.0 % Neut # (Auto) 6.14 (1.4-6.5) K/uL Lymph # (Auto) 0.48 L (1.2-3.4) K/uL [place] # (Auto) 0.33 (0.11-0.59) K/uL Eos # (Auto) 0.01 (0-0.5) K/uL Baso # (Auto) 0.00 (0-0.2) K/uL Immature Gran # (Auto) 0.00 (0.00-0.02) K/uL Sodium Potassium Chloride Carbon Dioxide Anion Gap BUN Creatinine Est Cr Clr Drug Dosing Est GFR ( Amer) Est GFR (Non-Af Amer) BUN/Creatinine Ratio Glucose POC Glucose (70-99) mg/dl Estimat Average Glucose mg/dl Hemoglobin A1c (4.5-5.6) % Calcium Magnesium (1.8-2.4) mg/dl Total Bilirubin AST ALT Alkaline Phosphatase Troponin I (0-0.045) ng/ml Total Protein Albumin Globulin Albumin/Globulin Ratio Triglycerides (0-150) mg/dl Cholesterol (0-200) mg/dl LDL Cholesterol, Calc mg/dl VLDL Cholesterol, Calc mg/dl HDL Cholesterol mg/dl Cholesterol/HDL Ratio Lipase Beta-Hydroxybutyric Acd (0.2-2.81) mg/dl Urine Color Urine Appearance (Clear) Urine pH (4.5-7.5) Ur Specific [place] (1.000-1.030) Urine Protein (Negative) Urine Glucose (UA) (Negative) Urine Ketones (Negative) Urine Blood (Negative) Urine Nitrite (Negative) Urine Bilirubin (Negative) Urine Urobilinogen (Negative) Ur Leukocyte Esterase (Negative) Urine WBC (Auto) (0-5) /hpf Urine RBC (Auto) (0-4) /hpf U Hyaline Cast (Auto) (0-5) /lpf U Epithel Cells (Auto) (0-5) /lpf Urine Bacteria (Auto) (Negative) SARS-CoV-2, RNA, NAAT (NEGATIVE) (1) Acute pancreatitis Acute pancreatitis complication: no infection or necrosis Pancreatitis type: unspecified pancreatitis type Qualified Code(s): K85.90 - Acute pancreatitis without necrosis or infection, unspecified
[2021-10-23 10:01] LABS: BUN Creatinine Ratio 12.3 (10-20); Calcium 7.2 mg/dl (8.5-10.1); Creatinine Clr Calc Pharmacy 132.5 ml/min; Est GFR (African American) 90.8 ml/min; Est GFR (Non-African American) 78.3 ml/min
--- NOTE | 2021-10-23 13:14 | XRay Report ---
ORBIT RADIOGRAPHS 3 VIEWS HISTORY: pre-MRI screening. COMPARISON: None. FINDINGS: There are no radiopaque foreign bodies identified within the orbits. IMPRESSION: No radiopaque foreign bodies identified within the orbits. ACT 112: Negative or not required by law. Electronically signed by: Santo Bah M.D. 10/23/2021 1:13 PM
--- NOTE | 2021-10-23 14:11 | Pharmacy Report ---
Pharmacy Glycemic Short Note 2 - Date of Service October 23, 2021 - Glycemic Short BSG Results (Last 24 hours): 10/22/21 10/22/21 10/22/21 14:15 16:22 23:13 Glucose Cancelled 328 H* POC Glucose 277 H 10/23/21 10/23/21 10/23/21 01:47 03:14 05:09 Glucose Cancelled 395 H* 377 H* POC Glucose 10/23/21 10/23/21 10/23/21 05:33 08:36 09:22 Glucose 315 H* POC Glucose 313 H* 334 H* 10/23/21 10/23/21 10/23/21 09:48 11:03 12:09 Glucose POC Glucose 280 H 267 H 212 H 10/23/21 13:29 Glucose POC Glucose 210 H OUTPATIENT ANTIDIABETIC REGIMEN: * Lantus 43 units Q AM + 26 units Q PM * Novolog 10 units w/ breakfast + 18 units w/ lunch + 18 units w/ dinner * A1c = 7.5% 10/18/21 ASSESSMENT: * Type 2 diabetic admitted for COVID19 viral pna, resp failure, ARDS. * Patient is now intubated, sedated, paralyzed, receiving dexamethasone 6mg IV BID, and has orders to begin continuous tube feeds * Patient became hyperglycemia yesterdays due to multiple stressors and did receive IV insulin drip for a short period of time. I would not doubt that she may require the drip again in the near future given current stressors and along w/ the initiation of continuous tube feeds with high dose steroid. * Will begin a basal/bolus regimen. NPH will be utilized to address steroid induced hyperglycemia following each dose of dexamethasone. Will utilize a relatively low dose of Lantus on top of this due to out-pt insulin requirements of >100units/day when no receiving steroid therapy. Novolog CF/CR will be based upon outpt regimen and "severe" stress level. PLAN FOR INPATIENT GLYCEMIC CONTROL: * Basal insulin * Lantus 15 units SQ QAM * NPH 25 units SQ with each dose of dexamethasone 6mg IV * Bolus insulin * NovoLog per scale Q 4 hrs * Goal Range: Low 110 mg/dL - High 140 mg/dL * Correction Factor: 9 mg/dL/unit * Nutritional / Prandial insulin per carb ratio of 1 unit per 3 grams CHO consumed PLAN FOR DISCHARGE: * to be determined
[2021-10-23] MEDS ORDERED: D5W AND LACTATED RINGERS 1,000 ML IV SCH (14:45)
[2021-10-23 17:34] LABS: Albumin Globulin Ratio 0.5 (0.9-2); Albumin Level 2.8 gm/dl (3.4-5.0); BUN Creatinine Ratio 13.7 (10-20); Bilirubin,Total 0.6 mg/dl (0.2-1); Calcium 7.6 mg/dl (8.5-10.1); Creatinine Clr Calc Pharmacy 141.1 ml/min; Est GFR (Non-African American) 84.6 ml/min; Globulin 5.4 gm/dl (2.5-4.0); Potassium 3.8 mmol/L (3.5-5.1); Total Protein 8.2 gm/dl (6.4-8.2)
[2021-10-23] MEDS ORDERED: CARBOHYDRATES FOR HYPOGLYCEMIA PO PRN (17:49)
[2021-10-23] MEDS ORDERED: GLUCAGON FOR INJ 1 MG VIAL SQ PRN (17:49)
[2021-10-23] MEDS ORDERED: GLUCOSE 40% GEL 15 GM TUBE PO PRN (17:49)
[2021-10-23] MEDS ORDERED: DEXTROSE 50% 50 ML SYRINGE IV PRN (17:49)
[2021-10-23] MEDS ORDERED: GLUCOSE 10 TABS/TUBE PO PRN (17:49)
--- NOTE | 2021-10-23 23:04 | Hospitalist Progress Note ---
Date of Service October 23, 2021 delayed entry date of service noted above Assessment & Plan (1) Acute pancreatitis: Plan: ASSESSMENT AND PLAN: This is a 41-year-old male who presents with severe abdominal pain and found to have acute pancreatitis. 1. Acute severe pancreatitis,secondary to Hypertriglyceridemia -- given IV Insulin to lower TG Tg improved from 800s to 563 IV insulin discontinued -- continue vigorous IV LR MRCP pending -- NPO GI consulted 2. Diabetes mellitus 2 -- usually on Metformin -- given IV insulin BSG improved to < 200 -- transitioned to ISS -- monitor 3. Morbid obesity. Needs counseling. 4. Deep venous thrombosis prophylaxis: Lovenox. DISPOSITION: pending plan of care discussed with patient in detail and at length all questions answered he is understanding, agreeable, comfortable with the plan of care Admission and Anticipated Discharge Date Admission Date: October 22, 2021 Subjective ff up for acute pancreatitis,etc seen resting in bed, not in distress states abdominal pain is about the same worse with movement no chest pain, dyspnea, palpitations, dizziness no fever/chills no other symptoms Review of Systems Review of Systems: all noted and negative except for above Physical Exam Physical Exam: General- oriented x 3, not in distress, speaks in sentences with no effort or accessory muscle use Head- atraumatic Eyes- PERRL, EOMI, anicteric ENT- oropharynx clear Neck- supple, no JVD, no adenopathy, no thyromegaly; carotids +2/2, no bruits appreciated Lungs- clear to auscultation bilaterally, no rales/wheezes Heart- normal rate, regular rhythm; no murmur, no gallop, no rub appreciated Abdomen- normal bowel sounds, nondistended, soft, nontender, (+) mild tenderness upper quadrants Extremities- no pretibial edema, no calf tenderness; peripheral pulses intact Neuro- alert, oriented x 3; CN 2-12 grossly intact; motor 5/5 bilaterally;sensation 100% on all extremities; no other gross focal neurologic deficits Skin- warm & dry Results & Data Results & Data ([facility]) Vital Signs (Past 12 Hours) Vital Signs Temp Pulse Resp BP Pulse Ox 10/23/21 21:55 37.7 C H 115 H 18 112/65 91 10/23/21 16:26 37.4 C 122 H 18 117/79 94 10/23/21 15:27 111 H 20 130/77 98 10/23/21 11:32 129 H 18 120/73 99 all noted and reviewed including below (1) Acute pancreatitis Acute pancreatitis complication: no infection or necrosis Pancreatitis type: unspecified pancreatitis type Qualified Code(s): K85.90 - Acute pancreatitis without necrosis or infection, unspecified
[2021-10-24] MEDS: LACTATED RINGER'S 1,000 ML IV SCH ×4 (05:23→20:04)
[2021-10-24 08:01] LABS: Albumin Globulin Ratio 0.6 (0.9-2); Albumin Level 2.4 gm/dl (3.4-5.0); BUN Creatinine Ratio 19.4 (10-20); Bilirubin,Total 0.7 mg/dl (0.2-1); Calcium 7.9 mg/dl (8.5-10.1); Creatinine Clr Calc Pharmacy 196.1 ml/min; Est GFR (African American) 128.8 ml/min; Est GFR (Non-African American) 111.1 ml/min; Globulin 4.2 gm/dl (2.5-4.0); Potassium 3.7 mmol/L (3.5-5.1); Total Protein 6.6 gm/dl (6.4-8.2)
[2021-10-24] MEDS: ENOXAPARIN INJ 40 MG/0.4 ML SYR SQ SCH ×2 (09:29→20:08)
[2021-10-24] MEDS: INSULIN ASPART 100 UNITS/ML 3 ML PEN SC SCH ×4 (09:30→17:20)
--- NOTE | 2021-10-24 09:30 | Gastroenterology Progress Note ---
Date of Service October 24, 2021 Assessment & Plan (1) Acute pancreatitis: Plan: 41 year old male with diabetes admitted w/ abdominal pain, nausea/vomiting onset Friday, lipase 13,513 w/ normal LFTS. Imaging consistent with acute pancreatitis and biliary sludge w/o biliary dilation. - Await MRCP results - NPO for bowel rest - OK for some ice chips - Continue LR 200 mL/hr - Antiemetics PRN - OP EUS in 4 weeks - Elevated triglycerides - severe inflammatory response to acute pancreatitis can cause increased triglycerides - rule out other cause of pancreatitis w/ MRCP - can continue fenofibrate at this time - If concern for hypertriglyceridemia induced pancreatitis, goal of triglyceride levels below 500 mg/dL - Plasmapheresis does not improve outcomes of uncomplicated HTGpanc, but if high risk features are evidence can consider cardiology evaluation in regards to plasmapheresis Thank you for allowing us to participate in the care of this patient. Please call with any acute changes, questions or concerns. Please see addendum below with additional recommendation from my supervising physician. Admission and Anticipated Discharge Date Admission Date: October 22, 2021 Supervising Physician Co-Signing Physician Notes I have seen and examined the patient with HEATHER Sinclair whose note reflects our findings and plan. Pancreatitis. ?related to biliary sludge. aWaiting MRCP. TG are elevated and may be conntributing. Bowel rest. IVF hydration. Outpatient EUS in 4-6 weeks to further evaluate the pancreas. Subjective Pt was seen and evaluated. Pain was somewhat better last evening but returned this AM No nausea, vomiting MRCP pending Review of Systems Review of Systems: All systems reviewed & are unremarkable except as noted in HPI & below Physical Exam Constitutional: WD/WN, vitals as above Neck: trachea midline, no thyromegaly Respiratory: normal respiratory effort, lungs clear to auscultation Cardiovascular: Rate/Rhythm: regular rate Gastrointestinal (Abdomen): normal bowel sounds, soft, nontender, no hepatosplenomegaly Skin: no rashes, warm and dry Results & Data ([facility]) Vital Signs (Past 12 Hours) Vital Signs Temp Pulse Resp BP Pulse Ox 10/24/21 06:11 37.2 C 101 H 18 116/56 L 93 10/23/21 21:55 37.7 C H 115 H 18 112/65 91 Laboratory Results 10/24/21 10/24/21 10/24/21 Range/Units 08:09 05:54 05:54 Sodium 135 L (136-145) mmol/L Potassium 3.7 (3.5-5.1) mmol/L Chloride 105 (98-107) mmol/L Carbon Dioxide 25 (21-32) mmol/L Anion Gap 5.0 (3-11) BUN 15 (7-18) mg/dl Creatinine 0.77 D (0.6-1.4) mg/dl Est Cr Clr Drug Dosing 196.1 ml/min Est GFR ( Amer) 128.8 ml/min Est GFR (Non-Af Amer) 111.1 ml/min BUN/Creatinine Ratio 19.4 (10-20) Glucose 233 H (70-99) mg/dl POC Glucose 235 H (70-99) mg/dl Lactate (0.4-2.0) mmol/L Calcium 7.9 L (8.5-10.1) mg/dl Ionized Calcium 1.00 L (1.12-1.32) mmol/L Total Bilirubin 0.7 (0.2-1) mg/dl AST 9 L (15-37) U/L ALT 13 (12-78) U/L Alkaline Phosphatase 55 (45-117) U/L Total Protein 6.6 (6.4-8.2) gm/dl Albumin 2.4 L (3.4-5.0) gm/dl Globulin 4.2 H (2.5-4.0) gm/dl Albumin/Globulin Ratio 0.6 L (0.9-2) Triglycerides 497 H (0-150) mg/dl Lipase 1174 H (73-393) U/L Beta-Hydroxybutyric Acd (0.2-2.81) mg/dl 10/24/21 10/23/21 10/23/21 Range/Units 03:42 23:52 22:33 Sodium (136-145) mmol/L Potassium (3.5-5.1) mmol/L Chloride (98-107) mmol/L Carbon Dioxide (21-32) mmol/L Anion Gap (3-11) BUN (7-18) mg/dl Creatinine (0.6-1.4) mg/dl Est Cr Clr Drug Dosing ml/min Est GFR ( Amer) ml/min Est GFR (Non-Af Amer) ml/min BUN/Creatinine Ratio (10-20) Glucose (70-99) mg/dl POC Glucose 215 H 231 H 224 H (70-99) mg/dl Lactate (0.4-2.0) mmol/L Calcium (8.5-10.1) mg/dl Ionized Calcium (1.12-1.32) mmol/L Total Bilirubin (0.2-1) mg/dl AST (15-37) U/L ALT (12-78) U/L Alkaline Phosphatase (45-117) U/L Total Protein (6.4-8.2) gm/dl Albumin (3.4-5.0) gm/dl Globulin (2.5-4.0) gm/dl Albumin/Globulin Ratio (0.9-2) Triglycerides (0-150) mg/dl Lipase (73-393) U/L Beta-Hydroxybutyric Acd (0.2-2.81) mg/dl 10/23/21 10/23/21 10/23/21 Range/Units 21:52 20:46 20:06 Sodium (136-145) mmol/L Potassium (3.5-5.1) mmol/L Chloride (98-107) mmol/L Carbon Dioxide (21-32) mmol/L Anion Gap (3-11) BUN (7-18) mg/dl Creatinine (0.6-1.4) mg/dl Est Cr Clr Drug Dosing ml/min Est GFR ( Amer) ml/min Est GFR (Non-Af Amer) ml/min BUN/Creatinine Ratio (10-20) Glucose (70-99) mg/dl POC Glucose 225 H 234 H (70-99) mg/dl Lactate 2.0 (0.4-2.0) mmol/L Calcium (8.5-10.1) mg/dl Ionized Calcium (1.12-1.32) mmol/L Total Bilirubin (0.2-1) mg/dl AST (15-37) U/L ALT (12-78) U/L Alkaline Phosphatase (45-117) U/L Total Protein (6.4-8.2) gm/dl Albumin (3.4-5.0) gm/dl Globulin (2.5-4.0) gm/dl Albumin/Globulin Ratio (0.9-2) Triglycerides (0-150) mg/dl Lipase (73-393) U/L Beta-Hydroxybutyric Acd (0.2-2.81) mg/dl 10/23/21 10/23/21 10/23/21 Range/Units 19:31 18:28 17:18 Sodium (136-145) mmol/L Potassium (3.5-5.1) mmol/L Chloride (98-107) mmol/L Carbon Dioxide (21-32) mmol/L Anion Gap (3-11) BUN (7-18) mg/dl Creatinine (0.6-1.4) mg/dl Est Cr Clr Drug Dosing ml/min Est GFR ( Amer) ml/min Est GFR (Non-Af Amer) ml/min BUN/Creatinine Ratio (10-20) Glucose (70-99) mg/dl POC Glucose 218 H 190 H 172 H (70-99) mg/dl Lactate (0.4-2.0) mmol/L Calcium (8.5-10.1) mg/dl Ionized Calcium (1.12-1.32) mmol/L Total Bilirubin (0.2-1) mg/dl AST (15-37) U/L ALT (12-78) U/L Alkaline Phosphatase (45-117) U/L Total Protein (6.4-8.2) gm/dl Albumin (3.4-5.0) gm/dl Globulin (2.5-4.0) gm/dl Albumin/Globulin Ratio (0.9-2) Triglycerides (0-150) mg/dl Lipase (73-393) U/L Beta-Hydroxybutyric Acd (0.2-2.81) mg/dl 10/23/21 10/23/21 10/23/21 Range/Units 17:03 17:03 16:03 Sodium 138 (136-145) mmol/L Potassium 3.8 D (3.5-5.1) mmol/L Chloride 107 (98-107) mmol/L Carbon Dioxide 22 (21-32) mmol/L Anion Gap 9.0 (3-11) BUN 15 (7-18) mg/dl Creatinine 1.07 (0.6-1.4) mg/dl Est Cr Clr Drug Dosing 141.1 ml/min Est GFR ( Amer) 98.0 ml/min Est GFR (Non-Af Amer) 84.6 ml/min BUN/Creatinine Ratio 13.7 (10-20) Glucose 184 H (70-99) mg/dl POC Glucose 171 H (70-99) mg/dl Lactate (0.4-2.0) mmol/L Calcium 7.6 L (8.5-10.1) mg/dl Ionized Calcium 0.94 L (1.12-1.32) mmol/L Total Bilirubin 0.6 (0.2-1) mg/dl AST 10 L (15-37) U/L ALT 17 (12-78) U/L Alkaline Phosphatase 59 (45-117) U/L Total Protein 8.2 (6.4-8.2) gm/dl Albumin 2.8 L (3.4-5.0) gm/dl Globulin 5.4 H (2.5-4.0) gm/dl Albumin/Globulin Ratio 0.5 L (0.9-2) Triglycerides 563 H (0-150) mg/dl Lipase (73-393) U/L Beta-Hydroxybutyric Acd (0.2-2.81) mg/dl 10/23/21 10/23/21 10/23/21 Range/Units 15:14 14:14 13:29 Sodium (136-145) mmol/L Potassium (3.5-5.1) mmol/L Chloride (98-107) mmol/L Carbon Dioxide (21-32) mmol/L Anion Gap (3-11) BUN (7-18) mg/dl Creatinine (0.6-1.4) mg/dl Est Cr Clr Drug Dosing ml/min Est GFR ( Amer) ml/min Est GFR (Non-Af Amer) ml/min BUN/Creatinine Ratio (10-20) Glucose (70-99) mg/dl POC Glucose 193 H 193 H 210 H (70-99) mg/dl Lactate (0.4-2.0) mmol/L Calcium (8.5-10.1) mg/dl Ionized Calcium (1.12-1.32) mmol/L Total Bilirubin (0.2-1) mg/dl AST (15-37) U/L ALT (12-78) U/L Alkaline Phosphatase (45-117) U/L Total Protein (6.4-8.2) gm/dl Albumin (3.4-5.0) gm/dl Globulin (2.5-4.0) gm/dl Albumin/Globulin Ratio (0.9-2) Triglycerides (0-150) mg/dl Lipase (73-393) U/L Beta-Hydroxybutyric Acd (0.2-2.81) mg/dl 10/23/21 10/23/21 10/23/21 Range/Units 12:09 11:03 09:48 Sodium (136-145) mmol/L Potassium (3.5-5.1) mmol/L Chloride (98-107) mmol/L Carbon Dioxide (21-32) mmol/L Anion Gap (3-11) BUN (7-18) mg/dl Creatinine (0.6-1.4) mg/dl Est Cr Clr Drug Dosing ml/min Est GFR ( Amer) ml/min Est GFR (Non-Af Amer) ml/min BUN/Creatinine Ratio (10-20) Glucose (70-99) mg/dl POC Glucose 212 H 267 H 280 H (70-99) mg/dl Lactate (0.4-2.0) mmol/L Calcium (8.5-10.1) mg/dl Ionized Calcium (1.12-1.32) mmol/L Total Bilirubin (0.2-1) mg/dl AST (15-37) U/L ALT (12-78) U/L Alkaline Phosphatase (45-117) U/L Total Protein (6.4-8.2) gm/dl Albumin (3.4-5.0) gm/dl Globulin (2.5-4.0) gm/dl Albumin/Globulin Ratio (0.9-2) Triglycerides (0-150) mg/dl Lipase (73-393) U/L Beta-Hydroxybutyric Acd (0.2-2.81) mg/dl 10/23/21 10/23/21 10/23/21 Range/Units 09:22 09:22 09:22 Sodium 135 L (136-145) mmol/L Potassium (3.5-5.1) mmol/L Chloride 104 (98-107) mmol/L Carbon Dioxide 20 L (21-32) mmol/L Anion Gap 11.0 (3-11) BUN 14 (7-18) mg/dl Creatinine 1.14 (0.6-1.4) mg/dl Est Cr Clr Drug Dosing 132.5 ml/min Est GFR ( Amer) 90.8 ml/min Est GFR (Non-Af Amer) 78.3 ml/min BUN/Creatinine Ratio 12.3 (10-20) Glucose 315 H* (70-99) mg/dl POC Glucose (70-99) mg/dl Lactate 3.2 H* (0.4-2.0) mmol/L Calcium 7.2 L (8.5-10.1) mg/dl Ionized Calcium 0.92 L (1.12-1.32) mmol/L Total Bilirubin (0.2-1) mg/dl AST (15-37) U/L ALT (12-78) U/L Alkaline Phosphatase (45-117) U/L Total Protein (6.4-8.2) gm/dl Albumin (3.4-5.0) gm/dl Globulin (2.5-4.0) gm/dl Albumin/Globulin Ratio (0.9-2) Triglycerides (0-150) mg/dl Lipase (73-393) U/L Beta-Hydroxybutyric Acd (0.2-2.81) mg/dl (1) Acute pancreatitis Acute pancreatitis complication: no infection or necrosis Pancreatitis type: unspecified pancreatitis type Qualified Code(s): K85.90 - Acute pancreatitis without necrosis or infection, unspecified
[2021-10-24] MEDS: FENOFIBRATE NANOCRYSTALLIZED 145 MG TABLET PO SCH (09:52)
--- NOTE | 2021-10-24 10:32 | Magnetic Resonance Report ---
MRCP CLINICAL HISTORY: Acute pancreatitis. COMPARISON STUDY: Abdominal CT and abdominal ultrasound dated 10/22/2021. TECHNIQUE: Abdominal MRCP is performed utilizing various T2-weighted sequences in the axial and coron al planes. IV contrast was not administered for this examination. 3-D reformats are created and asses sed. The examination is degraded by motion artifact. FINDINGS: The gallbladder is normal as visualized. No gallstones are seen. There is no intra or extrahepatic bi liary ductal dilatation. The common bile duct measures up to 4 mm in diameter. No intraluminal fillin g defects are identified to suggest choledocholithiasis. The common bile duct at and above the ampull a is not well-visualized. The pancreatic duct is normal in caliber. The liver is markedly enlarged measuring 28.3 cm in length. There is evidence of hepatic steatosis. T he spleen is enlarged measuring 16.4 cm in length. The pancreas is enlarged and edematous. Peripancre atic inflammation and fluid are consistent with acute pancreatitis. Fluid is seen tracking inferiorly within the retroperitoneum. No organized peripancreatic fluid collection is identified. The abdomina l aorta is normal in caliber. The kidneys and adrenal glands are grossly normal. There is no bowel ob struction. Small pleural effusions are identified with bibasilar atelectasis. IMPRESSION: 1. Significantly motion compromised examination. 2. Findings are consistent with severe acute pancreatitis. 3. No gallstones are identified and there is no evidence of cholelithiasis or choledocholithiasis by MRCP. 4. Marked hepatomegaly and hepatic steatosis. 5. Splenomegaly. 6. Small pleural effusions with bibasilar atelectasis. Dictated: 10/24/2021 9:54 AM Transcribed: 10/24/2021 10:06 AM Sindhu [id number] [email or web address] Electronically signed by: Arcadio Rudolph M.D. 10/24/2021 10:31 AM
[2021-10-24] MEDS ORDERED: Nursing to Pharmacy Communication SCH (11:00)
[2021-10-24] MEDS: HYDROmorphone INJ 0.5 MG/0.5 ML SYR IV PRN (19:48)
--- NOTE | 2021-10-24 20:41 | Hospitalist Progress Note ---
Date of Service October 24, 2021 Assessment & Plan (1) Acute pancreatitis: Plan: Patient is a 41-year-old male who presents with severe abdominal pain and found to have acute pancreatitis. Acute severe pancreatitis Secondary to Hypertriglyceridemia --CT ABD:. Findings are consistent with severe acute pancreatitis. The gland enhances throughout and no organized peripancreatic fluid collection is identified. Marked hepatomegaly and steatosis. Splenomegaly. Trace pleural effusions with dependent atelectasis. --MRCP:Significantly motion compromised examination. Findings are consistent with severe acute pancreatitis. No gallstones are identified and there is no evidence of cholelithiasis or choledocholithiasis by MRCP. Marked hepatomegaly and hepatic steatosis. Splenomegaly. Small pleural effusions with bibasilar atelectasis. -Gall Bladder USD:There is biliary sludge with no shadowing gallstones identified. Marked hepatomegaly and hepatic steatosis. The pancreas was not visualized due to overlying bowel gas. -Continue IV fluids Bowel rest Pain control Appreciate GI input Start on fenofibrate for hypertriglyceridemia Counseled to avoid Alcohol use DM type 2 with HHS usually on Metformin Received IV insulin Monitor BGs Continue ISS Morbid obesity Needs counseling. BMI:40 DVT Px Lovenox SQ Code Status Full code Admission and Anticipated Discharge Date Admission Date: October 22, 2021 Subjective Patient is seen and examined bedside States having abdominal pain about the same as yesterday Denies any nausea, vomiting, chest pain, shortness of breath Offers no other complaints Review of Systems Review of Systems: All systems reviewed & are unremarkable except as noted in Subjective Physical Exam Physical Exam: Physical Exam: Vitals signs as noted above General Appearance:Obese, no apparent distress Head: normocephalic, Atraumatic Eyes: normal inspection, EOMI Neck: supple, Trachea midline Respiratory/Chest: Normal breath sounds, CTA Cardiovascular: S1, S2, No murmur Abdomen/GI:Soft, mild tender, distended, Bowel sounds present Extremities/Musculoskeletal:normal inspection, no edema Neurologic/Psych:AAOX3, grossly no focal neurological deficits Skin: normal color, warm Results & Data Results & Data ([facility]) Vital Signs (Past 12 Hours) Vital Signs Temp Pulse Resp BP Pulse Ox 10/24/21 16:30 37.3 C 103 H 18 108/65 92 Laboratory Results [facility] 10/24/21 05:54 Sodium 135 L Potassium 3.7 Chloride 105 Carbon Dioxide 25 BUN 15 Creatinine 0.77 D Glucose 233 H Calcium 7.9 L Liver Function 10/24/21 Range/Units 05:54 Total Bilirubin 0.7 (0.2-1) mg/dl AST 9 L (15-37) U/L ALT 13 (12-78) U/L Alkaline Phosphatase 55 (45-117) U/L Albumin 2.4 L (3.4-5.0) gm/dl (1) Acute pancreatitis Acute pancreatitis complication: no infection or necrosis Pancreatitis type: unspecified pancreatitis type Qualified Code(s): K85.90 - Acute pancreatitis without necrosis or infection, unspecified
[2021-10-25] MEDS: INSULIN ASPART 100 UNITS/ML 3 ML PEN SC SCH ×6 (00:37→21:01)
[2021-10-25] MEDS: LACTATED RINGER'S 1,000 ML IV SCH ×5 (00:38→23:49)
[2021-10-25] MEDS: ACETAMINOPHEN 325 MG TAB PO PRN ×3 (04:00→19:27)
[2021-10-25 06:56] LABS: Hematocrit (blood only) 33.8 % (42-52); Mean Corpuscular Hemoglobin 29.1 pg (25-34); Mean Corpuscular Hgb Conc 32.5 g/dL (32-36); Mean Corpuscular Volume 89.4 fL (80-100); Mean Platelet Volume 10.4 fL (7.4-10.4); Platelet Count 129 K/uL (130-400); RDW Coefficient of Variation 14.2 % (11.5-14.5); RDW Standard Deviation 46.7 fL (36.4-46.3); Red Blood Count 3.78 M/uL (4.7-6.1); White Blood Count 5.04 K/uL (4.8-10.8)
[2021-10-25 06:58] LABS: Albumin Globulin Ratio 0.5 (0.9-2); Albumin Level 2.1 gm/dl (3.4-5.0); BUN Creatinine Ratio 19.4 (10-20); Bilirubin,Total 0.7 mg/dl (0.2-1); Calcium 8.3 mg/dl (8.5-10.1); Creatinine Clr Calc Pharmacy 247.5 ml/min; Est GFR (African American) 141.8 ml/min; Est GFR (Non-African American) 122.3 ml/min; Globulin 4.1 gm/dl (2.5-4.0); Potassium 3.6 mmol/L (3.5-5.1); Total Protein 6.2 gm/dl (6.4-8.2)
[2021-10-25] MEDS: FENOFIBRATE NANOCRYSTALLIZED 145 MG TABLET PO SCH (07:11)
[2021-10-25] MEDS: ENOXAPARIN INJ 40 MG/0.4 ML SYR SQ SCH ×2 (07:11→20:09)
--- NOTE | 2021-10-25 10:09 | Gastroenterology Progress Note ---
Date of Service October 25, 2021 Assessment & Plan (1) Acute pancreatitis: Plan: 41 year old male with diabetes admitted w/ abdominal pain, nausea/vomiting onset Friday, lipase 13,513 w/ normal LFTS. Imaging consistent with acute pancreatitis and biliary sludge w/o biliary dilation. - Can trial liquids today, if tolerating, can advance to low fat diet tomorrow - Continue LR 200 mL/hr - Antiemetics PRN - Analgesia PRN - OP EUS in 4 weeks - he lives in [place] and his has been on contact w/ his PCP to help get this arranged - Elevated triglycerides - severe inflammatory response to acute pancreatitis can cause increased triglycerides - rule out other cause of pancreatitis w/ MRCP - can continue fenofibrate at this time - If concern for hypertriglyceridemia induced pancreatitis, goal of triglyceride levels below 500 mg/dL - Plasmapheresis does not improve outcomes of uncomplicated HTGpanc, but if high risk features are evidence can consider cardiology evaluation in regards to plasmapheresis Will sign off. Recall as needed. Thank you for allowing us to participate in the care of this patient. Please call with any acute changes, questions or concerns. Please see addendum below with additional recommendation from my supervising physician. Admission and Anticipated Discharge Date Admission Date: October 22, 2021 Subjective Starting to feel better. Pain less severe Less nausea No vomiting Moving bowels yesterday Review of Systems Review of Systems: All systems reviewed & are unremarkable except as noted in HPI & below Physical Exam Constitutional: WD/WN, vitals as above Neck: trachea midline, no thyromegaly Respiratory: normal respiratory effort, lungs clear to auscultation Cardiovascular: Rate/Rhythm: regular rate and regular rhythm Gastrointestinal (Abdomen): normal bowel sounds, soft, nontender, no hep atosplenomegaly Skin: no rashes, warm and dry Results & Data ([facility]) Vital Signs (Past 12 Hours) Vital Signs Temp Pulse Resp BP Pulse Ox 10/25/21 07:08 37.2 C 91 H 16 103/58 L 94 Laboratory Results 10/25/21 10/25/21 10/25/21 Range/Units 06:03 05:37 05:37 WBC (4.8-10.8) K/uL RBC (4.7-6.1) M/uL Hgb (14.0-18.0) g/dL Hct (42-52) % MCV (80-100) fL MCH (25-34) pg MCHC (32-36) g/dL RDW Std Deviation (36.4-46.3) fL RDW Coeff of Che (11.5-14.5) % Plt Count (130-400) K/uL MPV (7.4-10.4) fL Sodium 135 L (136-145) mmol/L Potassium 3.6 (3.5-5.1) mmol/L Chloride 106 (98-107) mmol/L Carbon Dioxide 22 (21-32) mmol/L Anion Gap 7.0 (3-11) BUN 12 (7-18) mg/dl Creatinine 0.61 (0.6-1.4) mg/dl Est Cr Clr Drug Dosing 247.5 ml/min Est GFR ( Amer) 141.8 ml/min Est GFR (Non-Af Amer) 122.3 ml/min BUN/Creatinine Ratio 19.4 (10-20) Glucose 206 H (70-99) mg/dl POC Glucose 208 H (70-99) mg/dl Calcium 8.3 L (8.5-10.1) mg/dl Ionized Calcium 1.04 L (1.12-1.32) mmol/L Total Bilirubin 0.7 (0.2-1) mg/dl AST 7 L (15-37) U/L ALT 11 L (12-78) U/L Alkaline Phosphatase 57 (45-117) U/L Total Protein 6.2 L (6.4-8.2) gm/dl Albumin 2.1 L (3.4-5.0) gm/dl Globulin 4.1 H (2.5-4.0) gm/dl Albumin/Globulin Ratio 0.5 L (0.9-2) Triglycerides (0-150) mg/dl Lipase 584 H (73-393) U/L 10/25/21 10/25/21 10/24/21 Range/Units 05:37 00:32 17:07 WBC 5.04 (4.8-10.8) K/uL RBC 3.78 L (4.7-6.1) M/uL Hgb 11.0 L (14.0-18.0) g/dL Hct 33.8 L (42-52) % MCV 89.4 (80-100) fL MCH 29.1 (25-34) pg MCHC 32.5 (32-36) g/dL RDW Std Deviation 46.7 H (36.4-46.3) fL RDW Coeff of Che 14.2 (11.5-14.5) % Plt Count 129 L (130-400) K/uL MPV 10.4 (7.4-10.4) fL Sodium (136-145) mmol/L Potassium (3.5-5.1) mmol/L Chloride (98-107) mmol/L Carbon Dioxide (21-32) mmol/L Anion Gap (3-11) BUN (7-18) mg/dl Creatinine (0.6-1.4) mg/dl Est Cr Clr Drug Dosing ml/min Est GFR ( Amer) ml/min Est GFR (Non-Af Amer) ml/min BUN/Creatinine Ratio (10-20) Glucose (70-99) mg/dl POC Glucose 206 H 204 H (70-99) mg/dl Calcium (8.5-10.1) mg/dl Ionized Calcium (1.12-1.32) mmol/L Total Bilirubin (0.2-1) mg/dl AST (15-37) U/L ALT (12-78) U/L Alkaline Phosphatase (45-117) U/L Total Protein (6.4-8.2) gm/dl Albumin (3.4-5.0) gm/dl Globulin (2.5-4.0) gm/dl Albumin/Globulin Ratio (0.9-2) Triglycerides (0-150) mg/dl Lipase (73-393) U/L 10/24/21 10/24/21 Range/Units 16:47 12:28 WBC (4.8-10.8) K/uL RBC (4.7-6.1) M/uL Hgb (14.0-18.0) g/dL Hct (42-52) % MCV (80-100) fL MCH (25-34) pg MCHC (32-36) g/dL RDW Std Deviation (36.4-46.3) fL RDW Coeff of Che (11.5-14.5) % Plt Count (130-400) K/uL MPV (7.4-10.4) fL Sodium (136-145) mmol/L Potassium (3.5-5.1) mmol/L Chloride (98-107) mmol/L Carbon Dioxide (21-32) mmol/L Anion Gap (3-11) BUN (7-18) mg/dl Creatinine (0.6-1.4) mg/dl Est Cr Clr Drug Dosing ml/min Est GFR ( Amer) ml/min Est GFR (Non-Af Amer) ml/min BUN/Creatinine Ratio (10-20) Glucose (70-99) mg/dl POC Glucose 221 H (70-99) mg/dl Calcium (8.5-10.1) mg/dl Ionized Calcium (1.12-1.32) mmol/L Total Bilirubin (0.2-1) mg/dl AST (15-37) U/L ALT (12-78) U/L Alkaline Phosphatase (45-117) U/L Total Protein (6.4-8.2) gm/dl Albumin (3.4-5.0) gm/dl Globulin (2.5-4.0) gm/dl Albumin/Globulin Ratio (0.9-2) Triglycerides 518 H (0-150) mg/dl Lipase (73-393) U/L (1) Acute pancreatitis Acute pancreatitis complication: no infection or necrosis Pancreatitis type: unspecified pancreatitis type Qualified Code(s): K85.90 - Acute pancreatitis without necrosis or infection, unspecified
--- NOTE | 2021-10-25 12:21 | XRay Report ---
XR chest 1V portable CLINICAL HISTORY: fever. Evaluate cardiopulmonary status COMPARISON STUDY: No previous studies for comparison. TECHNIQUE: 1 view of the chest FINDINGS: Single frontal view of the chest demonstrates the cardiomediastinal silhouette to be within normal li mits. Patchy interstitial and alveolar opacities are present bilaterally. The findings are most reina cteristic of a viral type pneumonitis. Covid 19 pneumonia should be excluded. More confluent alveolar opacity is seen at the left lung base. There is blunting left costophrenic angle evidence for left p leural effusion. There is no evidence for vascular congestion. There is no acute osseous pathology. IMPRESSION: Mild patchy interstitial and alveolar opacities bilaterally suspicious for a viral type p neumonitis. Covid 19 pneumonia should be excluded. There is additional left lower lobe alveolar opaci ty and left pleural effusion. These findings are characteristic of pneumonia. ACT 112: Negative or not required by law. Electronically signed by: Campbell Zavala M.D. 10/25/2021 12:20 PM
[2021-10-25] MEDS ORDERED: Nursing to Pharmacy Communication SCH (13:00)
[2021-10-25 15:14] LABS: Influenza A virus by PCR Negative (Neg); Influenza B virus by PCR Negative (Neg); RSV by PCR Negative (Neg); SARS CoV2 RNA(COVID-19) InHosp NEGATIVE (Negative)
--- NOTE | 2021-10-25 18:02 | Hospitalist Progress Note ---
Date of Service October 25, 2021 Assessment & Plan (1) Acute pancreatitis: Plan: Patient is a 41-year-old male who presents with severe abdominal pain and found to have acute pancreatitis. Acute severe pancreatitis Secondary to Hypertriglyceridemia --CT ABD:. Findings are consistent with severe acute pancreatitis. The gland enhances throughout and no organized peripancreatic fluid collection is identified. Marked hepatomegaly and steatosis. Splenomegaly. Trace pleural effusions with dependent atelectasis. --MRCP:Significantly motion compromised examination. Findings are consistent with severe acute pancreatitis. No gallstones are identified and there is no evidence of cholelithiasis or choledocholithiasis by MRCP. Marked hepatomegaly and hepatic steatosis. Splenomegaly. Small pleural effusions with bibasilar atelectasis. -Gall Bladder USD:There is biliary sludge with no shadowing gallstones identified. Marked hepatomegaly and hepatic steatosis. The pancreas was not visualized due to overlying bowel gas. -Continue IV fluids Pain control Appreciate GI input Started on fenofibrate for hypertriglyceridemia Counseled to avoid Alcohol use Plan for endoscopic ultrasound in 4 weeks as outpatient Start on clear liquid diet Plan to advance to low-fat diet tomorrow Needs follow-up with GI upon discharge DM type 2 with HHS usually on Metformin Received IV insulin Monitor BGs Continue ISS Morbid obesity Needs counseling. BMI:40 DVT Px Lovenox SQ Code Status Full code Admission and Anticipated Discharge Date Admission Date: October 22, 2021 Subjective Patient is seen and examined bedside Abdominal pain better today Denies any nausea, vomiting Low-grade fever overnight Offers no other complaints Review of Systems Review of Systems: All systems reviewed & are unremarkable except as noted in Subjective Physical Exam Physical Exam: Physical Exam: Vitals signs as noted above General Appearance:Obese, no apparent distress Head: normocephalic, Atraumatic Eyes: normal inspection, EOMI Neck: supple, Trachea midline Respiratory/Chest: Normal breath sounds, CTA Cardiovascular: S1, S2, No murmur Abdomen/GI:Soft, mild tender, distended, Bowel sounds present Extremities/Musculoskeletal:normal inspection, no edema Neurologic/Psych:AAOX3, grossly no focal neurological deficits Skin: normal color, warm Results & Data Results & Data ([facility]) Vital Signs (Past 12 Hours) Vital Signs Temp Pulse Resp BP BP Pulse Ox 10/25/21 15:48 37.3 C 93 H 20 132/77 95 10/25/21 07:08 37.2 C 91 H 16 103/58 L 94 Laboratory Results Short CBC 10/25/21 Range/Units 05:37 WBC 5.04 (4.8-10.8) K/uL Hgb 11.0 L (14.0-18.0) g/dL Hct 33.8 L (42-52) % Plt Count 129 L (130-400) K/uL BMP 10/25/21 05:37 Sodium 135 L Potassium 3.6 Chloride 106 Carbon Dioxide 22 BUN 12 Creatinine 0.61 Glucose 206 H Calcium 8.3 L Liver Function 10/25/21 Range/Units 05:37 Total Bilirubin 0.7 (0.2-1) mg/dl AST 7 L (15-37) U/L ALT 11 L (12-78) U/L Alkaline Phosphatase 57 (45-117) U/L Albumin 2.1 L (3.4-5.0) gm/dl (1) Acute pancreatitis Acute pancreatitis complication: no infection or necrosis Pancreatitis type: unspecified pancreatitis type Qualified Code(s): K85.90 - Acute pancreatitis without necrosis or infection, unspecified
[2021-10-25] MEDS: HYDROmorphone INJ 0.5 MG/0.5 ML SYR IV PRN (22:45)
[2021-10-26] MEDS: HYDROmorphone INJ 0.5 MG/0.5 ML SYR IV PRN ×2 (06:17→18:31)
--- NOTE | 2021-10-26 07:20 | XRay Report ---
XR chest 1V portable CLINICAL HISTORY: sob. COMPARISON STUDY: 10/25/2021 TECHNIQUE: 1 view of the chest FINDINGS: Single frontal view of the chest demonstrates the cardiomediastinal silhouette to be within normal li mits. Compared to previous examination, patchy interstitial and alveolar opacities are again seen jean aterally suspicious for viral type pneumonitis and Covid 19 pneumonia. More confluent left lower lobe lung opacity and left pleural effusion are also again seen. There is no evidence for pleural effusio n. There is no evidence for vascular congestion. There is no acute osseous pathology. IMPRESSION: Compared to the previous examination, there is no significant interval change of patchy i nterstitial and alveolar opacities bilaterally. Left lower lobe alveolar opacity and left pleural eff usion are again seen with the findings characteristic of pneumonia. ACT 112: Negative or not required by law. Electronically signed by: Campbell Zavala M.D. 10/26/2021 7:18 AM
[2021-10-26] MEDS: ENOXAPARIN INJ 40 MG/0.4 ML SYR SQ SCH ×2 (07:26→20:43)
[2021-10-26] MEDS: FENOFIBRATE NANOCRYSTALLIZED 145 MG TABLET PO SCH (07:27)
[2021-10-26] MEDS ORDERED: HYDROmorphone INJ 0.5 MG/0.5 ML SYR IV STA (07:30)
[2021-10-26 07:42] LABS: Hematocrit (blood only) 33.5 % (42-52); Hemoglobin 11.1 g/dL (14.0-18.0); Mean Corpuscular Hemoglobin 29.6 pg (25-34); Mean Corpuscular Hgb Conc 33.1 g/dL (32-36); Mean Corpuscular Volume 89.3 fL (80-100); Mean Platelet Volume 9.5 fL (7.4-10.4); Platelet Count 152 K/uL (130-400); RDW Coefficient of Variation 13.9 % (11.5-14.5); RDW Standard Deviation 46.1 fL (36.4-46.3); Red Blood Count 3.75 M/uL (4.7-6.1); White Blood Count 7.06 K/uL (4.8-10.8)
[2021-10-26 07:44] LABS: Partial Thromboplastin Time 27.6 Seconds (21.0-31.0)
[2021-10-26 08:01] LABS: Albumin Level 2.4 gm/dl (3.4-5.0); BUN Creatinine Ratio 13.1 (10-20); Calcium 8.7 mg/dl (8.5-10.1); Creatinine Clr Calc Pharmacy 235.9 ml/min; Est GFR (Non-African American) 119.9 ml/min; Potassium 4.1 mmol/L (3.5-5.1)
[2021-10-26 08:04] LABS: Albumin Globulin Ratio 0.5 (0.9-2); Bilirubin,Total 0.6 mg/dl (0.2-1); Globulin 4.7 gm/dl (2.5-4.0); Total Protein 7.1 gm/dl (6.4-8.2)
[2021-10-26] MEDS: INSULIN ASPART 100 UNITS/ML 3 ML PEN SC SCH ×4 (09:33→20:53)
[2021-10-26] MEDS ORDERED: OPTIRAY 320 125ml IV ONE (10:39)
--- NOTE | 2021-10-26 10:58 | CT Scan Report ---
CT angio chest PE protocol CLINICAL HISTORY: sob, back pain . Bilateral lung opacities and suspicion of left lower lobe effusion and pneumonia. Evaluate for pulmonary embolus COMPARISON STUDY: Portable chest from 10/26/2021 CT DOSE: 840.04 mGy.cm TECHNIQUE: CT Angio of the chest was performed.followed by image post processing with coronal, and s agittal MIP reformats. Contrast Volume: Optiray 320, 119 ml FINDINGS: Vasculature: There is homogeneous perfusion of the pulmonary vasculature bilaterally. No intraluminal filling defects or evidence for pulmonary embolus is seen. Airway: The airway is clear. No endobronchial lesion is identified. Lungs and pleural: There is a moderate-sized left pleural effusion with left lower lobe opacity with air bronchograms. The findings are characteristic of pneumonia. Additionally, there is right lower lo be atelectasis. No other interstitial or alveolar opacities are seen bilaterally. Finding seen on the portable chest radiograph most likely related to the patient's body habitus and these findings descr ibed. Mediastinum: There is no evidence for pathologic adenopathy. The heart size is within normal limits. The thoracic aorta is within normal limits. There is no evidence for pericardial effusion. Upper abdomen:The adrenal glands are normal bilaterally. There is evidence for hepatomegaly and diffu se fatty infiltration of the liver. There is again evidence for upper abdominal ascites and acute diaz creatitis. Osseous structures: There is no acute osseous pathology. Impression: 1. No CTA evidence for pulmonary embolus. 2. Moderate-sized left pleural effusion with alveolar opacity at the left lung base with air bronchog diann. Findings are most characteristic of pneumonia. 3. There is also right basilar atelectasis. 4. There is again evidence for upper abdominal ascites and acute pancreatitis. 5. There is again evidence for hepatomegaly and fatty infiltration of the liver. ACT 112: Negative or not required by law. Electronically signed by: Campbell Zavala M.D. 10/26/2021 10:57 AM
[2021-10-26] MEDS ORDERED: AZITHROMYCIN 250 MG TAB PO ONE (14:08)
[2021-10-26] MEDS: cefUROXime axetil 500 MG TAB PO SCH ×2 (14:30→20:43)
--- NOTE | 2021-10-26 18:32 | Hospitalist Progress Note ---
Date of Service October 26, 2021 Assessment & Plan (1) Acute pancreatitis: Plan: Patient is a 41-year-old male who presents with severe abdominal pain and found to have acute pancreatitis. Acute severe pancreatitis Secondary to Hypertriglyceridemia --CT ABD:. Findings are consistent with severe acute pancreatitis. The gland enhances throughout and no organized peripancreatic fluid collection is identified. Marked hepatomegaly and steatosis. Splenomegaly. Trace pleural effusions with dependent atelectasis. --MRCP:Significantly motion compromised examination. Findings are consistent with severe acute pancreatitis. No gallstones are identified and there is no evidence of cholelithiasis or choledocholithiasis by MRCP. Marked hepatomegaly and hepatic steatosis. Splenomegaly. Small pleural effusions with bibasilar atelectasis. -Gall Bladder USD:There is biliary sludge with no shadowing gallstones identified. Marked hepatomegaly and hepatic steatosis. The pancreas was not visualized due to overlying bowel gas. -Continue IV fluids Pain control Appreciate GI input Started on fenofibrate for hypertriglyceridemia Counseled to avoid Alcohol use Plan for endoscopic ultrasound in 4 weeks as outpatient Tolerating low-fat diet Needs follow-up with GI upon discharge Community-acquired pneumonia-POA --CT Chest:No CTA evidence for pulmonary embolus. Moderate-sized left pleural effusion with alveolar opacity at the left lung base with air bronchograms. Fi ndings are most characteristic of pneumonia. There is also right basilar atelectasis. -Discussed with pulmonology on 10/26/21: No indication for thoracentesis currently. Advised to continue antibiotics for 7 to 10 days and repeat chest x-ray Started on cefuroxime, azithromycin DM II with HHS usually on Metformin Received IV insulin Monitor BGs Continue ISS Need prescription for Metformin upon discharge Plan to discharge on Metformin ER 1000mg BID Morbid obesity Needs counseling. BMI:40 DVT Px Lovenox SQ Code Status Full code Admission and Anticipated Discharge Date Admission Date: October 22, 2021 Subjective Patient is seen and examined bedside States having left pleuritic pain Abdominal pain better Tolerating a diet Denies nausea, vomiting pain chest pain Offers no other complaints Review of Systems Review of Systems: All systems reviewed & are unremarkable except as noted in Subjective Physical Exam Physical Exam: Physical Exam: Vitals signs as noted above General Appearance:Obese, no apparent distress Head: normocephalic, Atraumatic Eyes: normal inspection, EOMI Neck: supple, Trachea midline Respiratory/Chest: Normal breath sounds, CTA Cardiovascular: S1, S2, No murmur Abdomen/GI:Soft, mild tender, distended, Bowel sounds present Extremities/Musculoskeletal:normal inspection, no edema Neurologic/Psych:AAOX3, grossly no focal neurological deficits Skin: normal color, warm Results & Data Results & Data ([facility]) Vital Signs (Past 12 Hours) Vital Signs Temp Pulse Resp BP Pulse Ox 10/26/21 15:22 37.7 C H 89 16 121/77 94 10/26/21 07:18 37.4 C 90 16 120/73 95 Laboratory Results Short CBC 10/26/21 Range/Units 07:15 WBC 7.06 (4.8-10.8) K/uL Hgb 11.1 L (14.0-18.0) g/dL Hct 33.5 L (42-52) % Plt Count 152 (130-400) K/uL BMP 10/26/21 07:15 Sodium 134 L Potassium 4.1 Chloride 103 Carbon Dioxide 24 BUN 8 Creatinine 0.64 Glucose 203 H Calcium 8.7 Cardiac Enzymes 10/26/21 Range/Units 07:15 Troponin I < 0.015 (0-0.045) ng/ml Liver Function 10/26/21 Range/Units 07:15 Total Bilirubin 0.6 (0.2-1) mg/dl AST 7 L (15-37) U/L ALT 13 (12-78) U/L Alkaline Phosphatase 65 (45-117) U/L Albumin 2.4 L (3.4-5.0) gm/dl (1) Acute pancreatitis Acute pancreatitis complication: no infection or necrosis Pancreatitis type: unspecified pancreatitis type Qualified Code(s): K85.90 - Acute pancreatitis without necrosis or infection, unspecified
[2021-10-26] MEDS ORDERED: BACLOFEN 10 MG TAB PO ONE (18:48)
[2021-10-26] MEDS: ACETAMINOPHEN 325 MG TAB PO PRN (23:27)
[2021-10-27] MEDS: HYDROmorphone INJ 0.5 MG/0.5 ML SYR IV PRN (05:25)
[2021-10-27 06:06] LABS: Hematocrit (blood only) 33.4 % (42-52); Mean Corpuscular Hgb Conc 32.9 g/dL (32-36); Mean Corpuscular Volume 88.1 fL (80-100); Mean Platelet Volume 9.8 fL (7.4-10.4); Platelet Count 161 K/uL (130-400); RDW Coefficient of Variation 13.7 % (11.5-14.5); RDW Standard Deviation 44.5 fL (36.4-46.3); Red Blood Count 3.79 M/uL (4.7-6.1); White Blood Count 8.14 K/uL (4.8-10.8)
[2021-10-27 06:40] LABS: BUN Creatinine Ratio 13.5 (10-20); Calcium 8.6 mg/dl (8.5-10.1); Creatinine Clr Calc Pharmacy 235.9 ml/min; Est GFR (Non-African American) 119.9 ml/min; Potassium 3.4 mmol/L (3.5-5.1)
[2021-10-27] MEDS: FENOFIBRATE NANOCRYSTALLIZED 145 MG TABLET PO SCH (08:27)
[2021-10-27] MEDS: ENOXAPARIN INJ 40 MG/0.4 ML SYR SQ SCH (08:27)
[2021-10-27] MEDS: cefUROXime axetil 500 MG TAB PO SCH (08:27)
[2021-10-27] MEDS ORDERED: AZITHROMYCIN 250 MG TAB PO SCH (09:00)
[2021-10-27] MEDS: INSULIN ASPART 100 UNITS/ML 3 ML PEN SC SCH ×2 (09:33→13:17)
[2021-10-27] MEDS ORDERED: POTASSIUM CHLORIDE CRTAB 20 MEQ TABCR PO ONE (10:32)
--- NOTE | 2021-10-27 13:39 | Hospitalist Progress Note ---
Date of Service October 27, 2021 Assessment & Plan (1) Acute pancreatitis: Plan: Patient is a 41-year-old male who presents with severe abdominal pain and found to have acute pancreatitis. Acute severe pancreatitis Secondary to Hypertriglyceridemia --CT ABD:. Findings are consistent with severe acute pancreatitis. The gland enhances throughout and no organized peripancreatic fluid collection is identified. Marked hepatomegaly and steatosis. Splenomegaly. Trace pleural effusions with dependent atelectasis. --MRCP:Significantly motion compromised examination. Findings are consistent with severe acute pancreatitis. No gallstones are identified and there is no evidence of cholelithiasis or choledocholithiasis by MRCP. Marked hepatomegaly and hepatic steatosis. Splenomegaly. Small pleural effusions with bibasilar atelectasis. -Gall Bladder USD:There is biliary sludge with no shadowing gallstones identified. Marked hepatomegaly and hepatic steatosis. The pancreas was not visualized due to overlying bowel gas. -Received IV fluids Pain control Appreciate GI input Continue fenofibrate for hypertriglyceridemia Counseled to avoid Alcohol use Plan for endoscopic ultrasound in 4 weeks as outpatient Tolerating low-fat diet Needs follow-up with GI upon discharge Community-acquired pneumonia-POA --CT Chest:No CTA evidence for pulmonary embolus. Moderate-sized left pleural effusion with alveolar opacity at the left lung base with air bronchograms. Fin dings are most characteristic of pneumonia. There is also right basilar atelectasis. -Discussed with pulmonology on 10/26/21: No indication for thoracentesis currently. Advised to continue antibiotics for 7 to 10 days and repeat chest x-ray Continue cefuroxime, azithromycin Day #2 DM II with HHS usually on Metformin Received IV insulin Monitor BGs Continue ISS Need prescription for Metformin upon discharge Plan to discharge on Metformin ER 1000mg BID Morbid obesity Needs counseling. BMI:40 DVT Px Lovenox SQ Code Status Full code Admission and Anticipated Discharge Date Admission Date: October 22, 2021 Subjective Patient is seen and examined bedside Doing much better today Tolerates low fat diet Minimal cough Denies nausea, vomiting pain chest pain Offers no other complaints Review of Systems Review of Systems: All systems reviewed & are unremarkable except as noted in Subjective Physical Exam Physical Exam: Physical Exam: Vitals signs as noted above General Appearance:Obese, no apparent distress Head: normocephalic, Atraumatic Eyes: normal inspection, EOMI Neck: supple, Trachea midline Respiratory/Chest: Normal breath sounds, CTA Cardiovascular: S1, S2, No murmur Abdomen/GI:Soft, mild tender, distended, Bowel sounds present Extremities/Musculoskeletal:normal inspection, no edema Neurologic/Psych:AAOX3, grossly no focal neurological deficits Skin: normal color, warm Results & Data Results & Data ([facility]) Vital Signs (Past 12 Hours) Vital Signs Temp Pulse Resp BP Pulse Ox 10/27/21 08:05 36.8 C 87 18 122/68 93 Laboratory Results Short CBC 10/27/21 Range/Units 05:37 WBC 8.14 (4.8-10.8) K/uL Hgb 11.0 L (14.0-18.0) g/dL Hct 33.4 L (42-52) % Plt Count 161 (130-400) K/uL BMP 10/27/21 05:37 Sodium 135 L Potassium 3.4 L D Chloride 102 Carbon Dioxide 23 BUN 9 Creatinine 0.64 Glucose 206 H Calcium 8.6 (1) Acute pancreatitis Acute pancreatitis complication: no infection or necrosis Pancreatitis type: unspecified pancreatitis type Qualified Code(s): K85.90 - Acute pancreatitis without necrosis or infection, unspecified
--- NOTE | 2021-10-27 13:55 | Discharge Summary ---
Date of Service October 27, 2021 Admission HPI Per Admitting Provider CHIEF COMPLAINT: Abdominal pain. HISTORY OF PRESENT ILLNESS: A 41-year-old male with past medical history significant for diabetes, morbid obesity presents with severe abdominal pain. 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 He says since last night he is having severe abdominal pain all over his belly that radiates to back, severe pain with associated nausea and vomiting. He then came here and found to have acute pancreatitis. The patient denies any alcohol use. He states he drinks once in a while. Denies any diarrhea or constipation. Normal bladder movements. No chest pain. He states he is not able to take deep breath and makes him feel short of breath. Denies any headache. No blurred visions, no runny nose, some sore throat from vomiting. Otherwise, ambulates okay. Hemodynamically stable. Admission Exam Per Admitting Provider PHYSICAL EXAMINATION: GENERAL: The patient is morbidly obese, seems to be in abdominal pain. VITAL SIGNS: Temperature 37, pulse 98, respiratory rate 38, blood pressure 176/112, oxygen 94% on room air. HEENT: Pupils equal, round and reactive to light. Oral mucosa dry. NECK: No JVD or neck masses. CARDIOVASCULAR: S1 and S2 heard, regular rate and rhythm. No murmur, no gallop. RESPIRATORY: Normal AP diameter. No accessory muscle use. No wheezing, no crackles. ABDOMEN: Soft. Bowel sounds present. Diffuse tenderness, guarding present. No distention. CENTRAL NERVOUS SYSTEM: Cranial nerves II through XII are grossly intact, nonfocal. EXTREMITIES: No edema, no erythema. Principal Diagnosis Acute severe pancreatitis Community-acquired pneumonia Diabetes Mellitus Discharge Data Allergies Allergy/AdvReac Type Severity Reaction Status Date / Time No Known Allergies Allergy Unverified 10/22/21 16:08 Consultations 10/22/21 21:01 ED Decision to Admit Stat 10/23/21 08:00 Consult Gastroenterology Routine Ordered Studies 10/22/21 15:49 CT abd pelvis IV con only Stat 10/22/21 15:50 US gallbladder Stat 10/23/21 09:10 MR MRCP Routine 10/26/21 08:01 CT angio chest PE protocol Urgent Hospital Course (1) Acute pancreatitis: Patient is a 41-year-old male who presents with severe abdominal pain and found to have acute pancreatitis. Acute severe pancreatitis Secondary to Hypertriglyceridemia --CT ABD:. Findings are consistent with severe acute pancreatitis. The gland enhances throughout and no organized peripancreatic fluid collection is identified. Marked hepatomegaly and steatosis. Splenomegaly. Trace pleural effusions with dependent atelectasis. --MRCP:Significantly motion compromised examination. Findings are consistent with severe acute pancreatitis. No gallstones are identified and there is no evidence of cholelithiasis or choledocholithiasis by MRCP. Marked hepatomegaly and hepatic steatosis. Splenomegaly. Small pleural effusions with bibasilar atelectasis. -Gall Bladder USD:There is biliary sludge with no shadowing gallstones identified. Marked hepatomegaly and hepatic steatosis. The pancreas was not visualized due to overlying bowel gas. -Received IV fluids Pain control Appreciate GI input Continue fenofibrate for hypertriglyceridemia Counseled to avoid Alcohol use Plan for endoscopic ultrasound in 4 weeks as outpatient Tolerating low-fat diet Needs follow-up with GI upon discharge Community-acquired pneumonia-POA --CT Chest:No CTA evidence for pulmonary embolus. Moderate-sized left pleural effusion with alveolar opacity at the left lung base with air bronchograms. Findings are most characteristic of pneumonia. There is also right basilar atelectasis. -Discussed with pulmonology on 10/26/21: No indication for thoracentesis currently. Advised to continue antibiotics for 7 to 10 days and repeat chest x-ray Continue cefuroxime, azithromycin Day #2 DM II with HHS usually on Metformin Received IV insulin Monitor BGs Continue ISS Need prescription for Metformin upon discharge Plan to discharge on Metformin ER 1000mg BID Morbid obesity Needs counseling. BMI:40 DVT Px Lovenox SQ Code Status Full code Total Time Total Time Spent Total Time Spent (In Minutes): 43 minutes Discharge Plan Discharge Items Patient Disposition: Home - Self-Care Reason For Visit: ABDOMINAL PAIN Discharge Diagnosis: Acute severe pancreatitis Community-acquired pneumonia Diabetes Mellitus Activity: Per Instructions section Exercise/Sports: Wait until after follow-up appointment Non-emergency contact: Primary Care Provider and Guest Services Officer Call non-emergency contact if: you have any medication questions, your symptoms worsen, your pain is concerning for you and you have a fever Follow-up/Referrals: PCP,NO [Primary Care Provider] - Diet: Carb Consistent or DM2 Addtl Attending Provider Instructions: Follow-up with your primary care physician in 1 week as advised Follow-up with your nocturnist for endoscopic ultrasound in 4 weeks as outpatient --- Complete antibiotic course (cefuroxime, azithromycin) as prescribed for pneumonia. Seek immediate medical attention if your symptoms reoccur or worsen Please take all medications as instructed on discharge list below. Please call if you have any questions or problems. You can reach a [facility] hospitalist on duty at [facility] 24 hours a day by calling [phone] Pending Studies at Discharge: No Stand-Alone Forms: My [facility], Smoking Cessation Medications and DC Order Prescriptions: New azithromycin 250 mg Tablet 250 mg PO QAM Qty: 3 RF: 0 cefuroxime axetil 500 mg Tablet 500 mg PO BID Qty: 16 RF: 0 fenofibrate nanocrystallized 145 mg Tablet 145 mg PO QAM Qty: 30 RF: 1 metformin 1,000 mg tablet extended release 24hr 1,000 mg PO BID Qty: 60 RF: 0 baclofen 5 mg tablet 5 mg PO BID PRN (Reason: Spasms ) Qty: 10 RF: 0 Continued acetaminophen [Tylenol Extra Strength] 500 mg Tablet 1,000 mg PO Q6H PRN (Reason: Pain) RF: 0 Urania 2 tab PO DAILY RF: 0 [place] Belly Tonic 1 dose PO DAILY RF: 0 Discontinued metformin 500 mg Tablet 0 mg PO BID RF: 0 Discharge Orders: Discharge Order (Routine); Ordered 10/27/21 Ordered By: Eric Ramachandran/Other Patient Handouts: Low-Fat Cooking Tips, Understanding Pancreatitis Admission Data Admit Date/Time: 10/22/21 21:14 Attending Provider: Eric Harrell Admit Provider: Fuad Ramirez Primary Care Provider: PCP,NO Other Providers: Fuad Ramirez ; Giana Boyer ; Jena Stanford ; Babar Henderson ; Hazel Hobbs ; Lai Balderrama ; Uri Wade ; [employer] ; Shubham Rose ; Erika Jean-Baptiste ; Gema Chaudhary ; Rekha Guaman ; Tiffanie Payne ; Myesha Almodovar
== END 2021-10-27 17:12 | disposition home or self-care (01) | DRG 438 ==
LOC: ED 11:38 → SUATTDRO 21:14 → EDINP 21:14 → 3N 10-23 01:15